=== PATIENT | female | born 1975 | race Caucasian/White ===

== ENCOUNTER 2024-05-16 04:06 | Day surgery (SDC) | payer OTHER, SELFPAY ==
[2024-04-26 14:44] VITALS: BMI 49.1
[2024-05-16 13:09] VITALS: BP 147/86; PULSE 74; RESP 18; TEMP 36.1; O2SAT 97
[2024-05-16] MEDS: LACTATED RINGERS 1,000 ML 150 ML IV CONT (13:19)
--- NOTE | 2024-05-16 13:36 | WPDANESEPPF ---
Anes - Initial Pre Proc Eval Procedure: Operation Date: 05/16/24 14:30 Proposed Procedures p Colonoscopy - Stewart Palafox MD Date/Time: 05/16/24 13:36 Surgeon: Stewart Palafox MD Pre Op Diagnosis: Ulcerative colitis, unspecified w/o complications Patient Data Age: 49 Gender: F Height: 1.63 m Weight: 125.5 kg Last Vital Signs Temp 96.9 F L 05/16/24 13:09 Pulse 74 05/16/24 13:09 Resp 18 05/16/24 13:09 BP 147/86 H 05/16/24 13:09 Pulse Ox 97 05/16/24 13:09 O2 Del Method Room Air 05/16/24 13:09 Allergies Allergy/AdvReac Type Severity Reaction Status Date / Time Sulfa (Sulfonamide Allergy Mild Unknown Verified 05/16/24 13:08 Antibiotics) Home Medications Medication Instructions Recorded Confirmed Type B-complex with vitamin C 1 cap PO HS 03/31/24 04/26/24 History duloxetine 60 mg capsule,delayed 60 mg PO HS 03/31/24 04/26/24 History release folic acid 20 mg capsule 20 mg PO DAILY 03/31/24 04/26/24 History hyoscyamine sulfate 0.375 mg 0.375 mg PO BID 03/31/24 04/26/24 History capsule,extended release 12 hr labetalol 300 mg tablet 300 mg PO Q12H 03/31/24 04/26/24 History montelukast 10 mg tablet 10 mg PO HS 03/31/24 04/26/24 History multivitamin-ferrous 1 tablet PO DAILY 03/31/24 04/26/24 History fumarate-folic acid 18 mg-400 mcg tablet (Centrum) omeprazole 20 mg capsule,delayed 20 mg PO DAILY 03/31/24 04/26/24 History release ferrous sulfate 325 mg (65 mg 325 mg PO DAILY #30 tabs 04/08/24 04/26/24 Rx iron) tablet adalimumab 10 mg/0.1 mL 40 mg subcut .EVERY WEEK 04/26/24 04/26/24 History subcutaneous syringe kit (Humira(CF)) albuterol sulfate 90 mcg/actuation 2 puff inhalation Q6H PRN SOB 04/26/24 04/26/24 History aerosol inhaler clonidine HCl 0.1 mg tablet 0.1 mg PO HS 04/26/24 04/26/24 History fexofenadine 180 mg tablet 180 mg PO DAILY 04/26/24 04/26/24 History fluticasone propionate 44 2 inh inhalation BID 04/26/24 04/26/24 History mcg/actuation HFA aerosol inhaler magnesium 400 mg PO DAILY 04/26/24 04/26/24 History ondansetron HCl 4 mg tablet 4 mg PO Q6H PRN N/V #4 tabs 04/26/24 Rx Patient hx anesthesia problems: none Family hx anesthesia problems: none Results Review: All pre-operative results and documents have been reviewed as part of the pre-operative evaluation. [facility] Social History Social History (Updated 03/31/24 @ 14:05 by Soarida Rudd MA) Smoking status: Former smoker Tobacco type: cigarettes Second hand tobacco smoke exposure: No Alcohol intake: never Do You Feel Safe in your Home?: Yes Living arrangements: with family Occupation/Education: occupation Gender identity (if verbalized by the patient): Female Spiritual care concerns: No Anes - Eval Final PreProcedure Day of Procedure 05/16/24 13:36 Patient weight: morbidly obese Heart: regular rate and rhythm Lungs: clear to auscultation Airway: Mallampati scale class II Neurological: alert and oriented Last oral intake: >/= 8 hours ASA classification: III Emergent: no Anesthetic plan: proceed Anesthesia type and monitoring: general GIVS and standard monitoring Results Review: All pre-operative results and documents have been reviewed as part of the pre-operative evaluation. Informed Consent: The patient's anesthetic plan and its attendant risks and benefits were discussed with the patient/family/POA. Questions were solicited and answers provided to the satisfaction of the patient/family/POA.
--- NOTE | 2024-05-16 14:08 | PM.HPGS ---
History of Present Illness History of Present Illness Consent: Risks, benefits, and alternatives have been discussed and questions answered. Patient agrees to proceed with procedure. Chief complaint: Ulcerative colitis, unspecified w/o complications Narrative: Nataliya Carter is a 49 year old female here for colonoscopy, diagnosed ulcerative colitis in 2012 she was given biosimilar for Remicade without improvement and was changed to Humira which she is currently taking weekly along with Levbid, last colonoscopy 2020 with inactive pancolitis, no dysplasia. She is supposed to get her colonoscopy every year. No change on symptoms, sometimes will have loose stools but seldom. Review of Systems Review of Systems: All systems reviewed & are unremarkable except as noted in HPI and below PMFSH Social History Social History (Updated 03/31/24 @ 14:05 by Soraida Rudd MA) Smoking status: Former smoker Tobacco type: cigarettes Second hand tobacco smoke exposure: No Alcohol intake: never Do You Feel Safe in your Home?: Yes Living arrangements: with family Occupation/Education: occupation Gender identity (if verbalized by the patient): Female Spiritual care concerns: No Meds Home Medications and Allergies Home Medications Medication Instructions Recorded Confirmed Type B-complex with vitamin C 1 cap PO HS 03/31/24 04/26/24 History duloxetine 60 mg capsule,delayed 60 mg PO HS 03/31/24 04/26/24 History release folic acid 20 mg capsule 20 mg PO DAILY 03/31/24 04/26/24 History hyoscyamine sulfate 0.375 mg 0.375 mg PO BID 03/31/24 04/26/24 History capsule,extended release 12 hr labetalol 300 mg tablet 300 mg PO Q12H 03/31/24 04/26/24 History montelukast 10 mg tablet 10 mg PO HS 03/31/24 04/26/24 History multivitamin-ferrous 1 tablet PO DAILY 03/31/24 04/26/24 History fumarate-folic acid 18 mg-400 mcg tablet (Centrum) omeprazole 20 mg capsule,delayed 20 mg PO DAILY 03/31/24 04/26/24 History release ferrous sulfate 325 mg (65 mg 325 mg PO DAILY #30 tabs 04/08/24 04/26/24 Rx iron) tablet adalimumab 10 mg/0.1 mL 40 mg subcut .EVERY WEEK 04/26/24 04/26/24 History subcutaneous syringe kit (Humira(CF)) albuterol sulfate 90 mcg/actuation 2 puff inhalation Q6H PRN SOB 04/26/24 04/26/24 History aerosol inhaler clonidine HCl 0.1 mg tablet 0.1 mg PO HS 04/26/24 04/26/24 History fexofenadine 180 mg tablet 180 mg PO DAILY 04/26/24 04/26/24 History fluticasone propionate 44 2 inh inhalation BID 04/26/24 04/26/24 History mcg/actuation HFA aerosol inhaler magnesium 400 mg PO DAILY 04/26/24 04/26/24 History ondansetron HCl 4 mg tablet 4 mg PO Q6H PRN N/V #4 tabs 04/26/24 Rx Allergies Allergy/AdvReac Type Severity Reaction Status Date / Time Sulfa (Sulfonamide Allergy Mild Unknown Verified 05/16/24 13:08 Antibiotics) Vital Signs Vital Signs - 24 hr 05/16/24 13:09 Temperature 96.9 F L Pulse Rate 74 Respiratory Rate 18 Blood Pressure 147/86 H Pulse Oximetry 97 Oxygen Delivery Room Air Exam Const: General: comfortable and no acute distress HENMT: Face/Nose/Sinus: Normal nares present Eyes: General: appearance normal, both eyes and all related structures Neck: Neck: no JVD Resp: Auscultation: clear to auscultation bilaterally Cardio: Rate: regular rate Rhythm: regular rhythm GI: Inspection: non-distended GI Palp: Yes Soft to palpation Skin: General skin exam: normal color Neuro: General: gait normal Speech: normal speech Extrem: General: normal to inspection Psych: Mental Status: mental status grossly normal Assessment and Plan Assessment and plan (1) Ulcerative colitis: Qualifiers: Ulcerative colitis location: other ulcerative colitis Digestive disease complication type: without complication Qualified Code(s): K51.80 - Other ulcerative colitis without complications Code(s): K51.90 - Ulcerative colitis, unspecifi
[2024-05-16 14:29] VITALS: BP 129/79; PULSE 74; RESP 17; O2SAT 93
[2024-05-16 14:39] VITALS: BP 134/80; PULSE 73; RESP 17; O2SAT 97
[2024-05-16 14:49] VITALS: BP 156/89; PULSE 65; RESP 20; O2SAT 100
== END 2024-05-16 15:02 | disposition home or self-care (01) ==
PROVIDERS: PCP Internal Medicine; Referring Provider Nurse Practitioner Family; Visit Provider Internal Medicine Gastroenterology
PROC: 0DJD8ZZ Inspection of Lower Intestinal Tract, Via Natural or Artificial Opening Endoscopic (ICD-10-PCS; CPT 45378; principal; 2024-05-16 14:30)
DX: K51.90 Ulcerative colitis, unspecified, without complications (principal); E66.01 Morbid (severe) obesity due to excess calories; Z68.42 Body mass index [BMI] 45.0-49.9, adult; Z79.620 Long term (current) use of immunosuppressive biologic; Z79.51 Long term (current) use of inhaled steroids; Z87.891 Personal history of nicotine dependence
CPT/HCPCS: 45380; 88305; J2704; J7120

== ENCOUNTER 2025-07-28 00:47 | Day surgery (SDC) | payer OTHER, SELFPAY ==
[2025-07-21 10:22] VITALS: BMI 47.7
--- OUTSIDE RECORDS SUMMARY | 2025-07-28 00:55 | XMS_ITS | Clinical Summary ---
Author Organization [facility] Address [facility] [place] [address] Care Team Providers Care Welfare Eligibility Interviewer Name Role Phone Jenna Young SAHIL Primary Care Provider [phone] Allergies Active Allergy Reactions Criticality Noted Date Comments Amlodipine Shortness of Breath High Sulfa Antibiotics Rash Low 04/12/2018 Medications Cetirizine HCl (ZYRTEC ALLERGY) 10 MG Cap Take 10 mg by mouth daily. Active omeprazole 20 MG capsule Take 20 mg by mouth daily. Active adalimumab (HUMIRA PEN) 40 MG/0.4ML pen-injector kit every 7 days. 04/02/2020 Activ e cloNIDine 0.1 MG tablet Take 0.1 mg by mouth every morning. 11/16/2019 Active loperamide 2 MG capsule Take 2 mg by mouth. Active TUBERCULIN SYR 1CC/27GX1/2 (B-D TB SYRINGE 1CC/27GX1/2) 27G X 1/2 1 ML Misc as directed 03/29/2019 Active losartan 25 MG tablet Take 25 mg by mouth daily. Active psyllium 51.7 % packet Take 1 packet by mouth daily. Active inFLIXimab-abda (RENFLEXIS) 100 MG injection Inject 5 mg/kg into the vein Once every eight weeks. Active diphenoxylate-a tropine 2.5-0.025 MG tablet 12/10/2020 Active folic acid 800 MCG tablet Take 400 mcg by mouth daily. Active hyoscyamine ER 0.375 MG 12 hr tablet Take 0.375 mg by mouth. Active Melatonin 10 MG Tab Take 1 tablet by mouth daily. Active labetalol 200 MG tablet Take 200 mg by mouth. Active Active Problems Problem Noted Date Diagnosed Date Ulcerative (chronic) ileocolitis 04/12/2018 Family History Medical History Relation Comments COPD Father Diabetes Maternal Grandfather Hypertension Maternal Grandfather Diabetes Maternal Grandmother Hypertension Maternal Grandmother Cancer Paternal Aunt Relation Status Comments Father Maternal Grandfather Maternal Grandmother Paternal Aunt Social History Tobacco Use Types Packs/Day Years Used Date Smoking Tobacco: Former Cigarettes 0.5 5 0 10/05/2001 - 10/05/2006 Smokeless Tobacco: Never Alcohol Use Standard Drinks/Week Comments Yes 0 (1 standard drink = 0.6 oz pur e alcohol) rare Comments No Sex and Gender Information Value Date Recorded Sex Assigned at Not on file Legal Sex Female 10:47 PM CDT Gender Identity Not on file Sexual Orientation Not on file Last Filed Vital Signs Vital Sign Reading Time Taken Comments Blood Pressure 140/87 02/21/2021 10:50 AM CDT Pulse 73 02/21/2021 10:50 AM CDT Temperature 36 C (96.8 F) 02/21/2021 10:30 AM CDT Respiratory Rate 19 02/21/2021 10:50 AM CDT Oxygen Saturation 100% 02/21/2021 10:50 AM CDT Inhaled Oxygen Concentration - - Weight 127.9 kg (282 lb) 02/15/2021 11:05 AM CDT Height 162.6 cm (5' 4) 07/31/2020 9:30 AM CDT Body Mass Index 48.41 07/31/2020 9:30 AM CDT Plan of Treatment Health Maintenance Due Date Last Done Comments Cervical Cancer Screening Pap Smear (Age 30 to 64) Every 3 Years 1973 Annual Physical 1976 Hepatitis C 1991 DTaP, Tdap and Td Vaccines (1 - Tdap) 1992 Hepatitis B Vaccines (1 of 3 - 19+ 3-dose series) 1992 Cervical Cancer Screening Pap with HPV Testing (Age 30 to 64) Every 5 Years 2003 Cervical Cancer Screening with HPV 2003 Mammogram Screening 12/21/2020 12/21/2018 Pneumococcal Vaccine: 50+ Years (2 of 2 - PCV) 2023 07/21/2016 Zoster Vaccines (1 of 2) 2023 COVID-19 Vaccine (2 - season) 2025 12/04/2020 Influenza Adult (#1) 2025 07/19/2020, 08/24/2018, 07/29/2017, Additional history exists Colorectal Cancer Screening Colonoscopy (10 Years) 02/21/2031 02/21/2021, 02/21/2021, 08/08/2020, Additional history exists Hepatitis A Vaccines Aged Out No long er eligible based on patient's age to complete this topic Meningococcal B Vaccine Aged Out No l onger eligible based on patient's age to complete this topic Meningococcal Vaccine Aged Out No alexus sanam eligible based on patient's age to complete this topic RSV Immunizations Under 20 Months Aged Out No longer eligible based on patient's age to complete this topic Procedures Procedure Name Priority Date/Time Associated Diagnosis Comments COLONOSCOPY Routine 02/21/2021 10:11 AM CDT MG SCREENING W GENNA REJI DIGI Routine 12/21/2018 9:49 AM CDT Screening breast examination from Last 3 Months or Most Recently Relevant to Health Maintenance Results * Colonoscopy (02/21/2021 10:11 AM CDT) Narrative Inocencio Pastrana MD - 02/21/2021 10:11 AM CDT Inocencio Pastrana MD 02/21/2021 10:39 AM INOCENCIO PASTRANA MD, FACG, FACP COLONOSCOPY 02/21/2021 INDICATION: Ulcerative Colitis. POST-OP: Quiescent Ulcerative Colitis. SEDATION: Per Anesthesia PREP: Good. With the patient in the left lateral decubitus position, the Olympus [id number] colonoscope was introduced into the rectum and advanced easily to the cecum identified by Ileocecal valve, appendiceal orifice and cecal strap. Careful inspection of the mucosa was made upon insertion and withdrawal of the endoscope. FINDINGS: Cecum, Ascending colon, Transverse colon, Descending colon, Sigmoid colon and Rectum including retroflexion: mildly tubular with altered vascular pattern and granularity consistent with quiescent Ulcerative Colitis. No masses, polyps, AVMs or diverticulosis seen. No complications, blood loss or implants. ASSESSMENT AND PLAN: Ulcerative Colitis: - Colonoscopy much improved - Consistent with quiescent Ulcerative Colitis - Continue current meds - Repeat colonoscopy with surveillance biopsies in two years Thank you for allowing me to care for your patient. She will follow-up with my office in six months. Inocencio Pastrana M.D. Cc: SAHIL Moncada Inocencio Pastrana MD GI PROCEDURE ORDERABLES Fin al Result * MG SCREENING W GENNA REJI DIGI (12/21/2018 9:49 AM CDT) Anatomical Region Laterality Modality Breast Bilateral Mammography 12/24/2018 9:37 AM CDT Impressions 12/24/2018 9:41 AM CDT =====IMPRESSION:===== No mammographic findings suggestive of malignancy. ASSESSMENT: ACR BI-RADS Category 2 - Benign. RECOMMENDATION: 1: Routine screening mammogram bilateral in 1 year COMMENTS: Narrative 12/24/2018 9:41 AM CDT EXAMINATION: Digital bilateral screening mammogram with 3-D tomosynthesis EXAM DATE/TIME: 12/21/2018 9:24 AM REASON FOR EXAM: scrn Screening mammogram COMPARISON: Prior mammograms dating back to 2013. TECHNIQUE: Digital screening mammography of both breasts was performed in addition to 3-D Tomosynthesis technique. This study was read with the assistance of a computer-aided detection system. TISSUE DENSITY: The breast tissue contains scattered fibroglandular densities. FINDINGS: No suspicious masses, malignant appearing calcifications, skin thickening or other abnormalities are present. No significant change from the prior exam. Trevon Mccann MD MAMMO Final Resu lt from Last 3 Months or Most Recently Relevant to Health Maintenance Insurance Care Teams Welfare Eligibility Interviewer Relationship Specialty Start Date End Date Jenna Young NP [address] [place] [id number] PCP - General Nurse Practitioner Family 05/04/19
--- OUTSIDE RECORDS SUMMARY | 2025-07-28 00:55 | XMS_ITS | Clinical Summary ---
Author Organization [facility] Address [address] [place] [address] Care Team Providers Care Stone Finisher Name Role Phone Janie Nicholas DO Primary Care Provider [phone] Allergies Active Allergy Reactions Criticality Noted Date Comments Cat Dander Itching Low 04/01/2023 Sulfa (Sulfonamide Antibiotics) Rash Medium 06/2018 Medications ANETTE Estrada, Pen 40 mg/0.4 mL pen injector kit INJECT 1 PEN SUBCUTANEOUSLY EVERY WEEK 12/11/19 21 Active hyoscyamine ER (LEVBID) 0.375 mg 12 hr tablet Take 1 tablet (0.375 mg total) by mouth every 12 (twelve) hours as needed Active cetirizine 10 mg capsule Take 10 mg by mouth daily Active omeprazole (PriLOSEC) 20 mg capsule Take by mouth daily 06/25/20 16 Active folic acid (FOLVITE) 800 mcg tablet Take 0.5 tablets (400 mcg total) by mouth daily Active cloNIDine (CATAPRES) 0.1 mg tablet Take by mouth nightly 11/16/19 21 Active labetaloL (NORMODYNE,NAIK DATE) 200 mg tablet Take 1.5 tablets (300 mg total) by mouth 2 (two) times a day 11/16/19 21 Active multivitamin capsule Take 1 capsule by mouth daily Active ibuprofen (ADVIL,MOTRIN) 800 mg tablet Take 1 tablet (800 mg total) by mouth every 8 (eight) hours as needed for pain (pain) 30 tablet 07/08/20 23 Active albuterol HFA (PROVENTIL HFA,VENTOLIN HFA,PROAIR HFA) 90 mcg/actuation inhaler Inhale 2 puffs every 6 (six) hours as needed Active fluticasone propionate (FLOVENT HFA) 44 mcg/actuation inhaler Inhale 2 puffs 2 (two) times a day Active montelukast (SINGULAIR) 10 mg tablet Take 1 tablet (10 mg total) by mouth daily Active DULoxetine DR (CYMBALTA) 30 mg capsuleIndicati ons:Lumbar spondylosis Take 1 capsule (30 mg total) by mouth 2 (two) times a day 60 capsule 2 02/16/20 24 Active Active Problems Problem Noted Date Diagnosed Date Postmenopausal bleeding 07/08/2023 Severe obesity due to excess calories affecting in second trimester 07/08/2023 Thrombocytosis 12/10/2020 Immunizations Immunization Administration Dates Next Due Influenza, Quadrivalent, Spl it, Preservative Free, Intramuscular 07/19/2020,08/24/2018,07/17/2015 Pfizer SARS-CoV-2 Monovalent Vaccination (12+ Yrs) PURPLE 12/04/2020 Pneumococcal Polysaccharide PPV23 07/21/2016 Surgical History Surgery Date Site/Laterality Comments SECTION CHOLECYSTECTOMY PLANTAR FASCIA SURGERY COLONOSCOPY Medical History Medical History Date Comments 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 Liver disease pt states it was a one time thing when she had her gallbladder problems Hypertension PONV (postoperative nausea and vomiting) Motion sickness Family History Medical History Relation Name Comments Rectal cancer Father's Sister 1 Breast cancer Father's Sister 2 Relation Name Status Comments Father's Sister 1 Father's Sister 2 Social History Tobacco Use Types Packs/Day Years Used Date Smoking Tobacco: Former Cigarettes Q uit: 2008 Smokeless Tobacco: Never Tobacco Cessation:Counseling Given: Not Answered AUDIT-C Answer Date Recorded Q1: How often do you have a drink containing alc ohol? Monthly or less 06/24/2023 Q2: How many drinks containi ng alcohol do you have on a typical day when you are drinking? 1 or 2 06/24/2023 Q3: How often do you have si x or more drinks on one occasion? Never 06/24/2023 Personal Safety Answer Date Recorded Have you ever been in or are you currently in a harmful physical or emotional relationship or is someone making you feel afraid or unsafe? Denies 07/08/2023 Comments No Sex and Gender Information Value Date Recorded Sex Assigned at Not on file Legal Sex Female 2:30 AM LEGAL INVESTIGATOR Gender Identity Female 07/01/2024 2:25 PM CDT Sexual Orientation Straight 07/01/2024 2: 25 PM CDT Obstetrics History Para Term AB IAB SAB Ectopic Multiple Livin g Live Births 1 1 1 Date Outcome GA Total Labor Labor/2nd/3rd Weight Sex Type Anes PTL Jessica A1 A5 Name Clin Term Last Filed Vital Signs Vital Sign Reading Time Taken Comments Blood Pressure 151/82 07/08/2023 2:15 PM CDT Pulse 69 07/08/2023 2:15 PM CDT Temperature 36.2 C (97.2 F) 07/08/2023 1:45 PM CDT Respiratory Rate 15 07/08/2023 1:45 PM CDT Oxygen Saturation 95% 07/08/2023 2:15 PM CDT Inhaled Oxygen Concentration - - Weight 126.6 kg (279 lb) 06/24/2023 10:10 AM CDT Height 162.6 cm (5' 4) 06/24/2023 10:10 AM CDT Body Mass Index 47.89 06/24/2023 10:10 AM CDT Plan of Treatment Health Maintenance Due Date Last Done Comments Cervical Cancer Screening 1973 Colon Cancer Screening-Colonoscopy 1973 Depression Screening 1973 Hepatitis B Screening 1991 Regular Well Visit/Exam 18-64 1991 Zoster Vaccine (1 of 2) 2023 Covid-19 Vaccine (4 - 2024- season) 2025 07/31/2021, 12/25/2020, 12/04/2020 Influenza Vaccine (#1) 2025 , 07/15/2022, 07/05/2021, Additional history exists Breast Cancer Screening-Mammogram 09/05/2025 09/05/2024, 07/22/2023, 07/21/2022, Additional history exists DTaP/Tdap/Td Vaccine (2 - Td or Tdap) 06/30/2027 06/30/2017 Hepatitis C Screening Completed 02/21/2015, 013 Pneumococcal vaccine <65 Aged Out 07/21/2016 No longer eligible based on patient's age to complete this topic Procedures Procedure Name Priority Date/Time Associated Diagnosis Comments SCREENING MAMMOGRAM BILATERAL W JUAN Schedule Routine, Read Routine (OP Routine) 09/05/2024 10:56 AM LEGAL INVESTIGATOR Screening mammogram, encounter for HEPATITIS PANEL, ACUTE Routine 02/21/2015 6:11 PM CDT from Last 3 Months or Most Recently Relevant to Health Maintenance Results * Screening Mammogram Bilateral W Juan (09/05/2024 10:56 AM LEGAL INVESTIGATOR) Anatomical Region Laterality Modality Breast Bilateral Mammography Impressions 09/05/2024 11:22 AM LEGAL INVESTIGATOR BI-RADS ATLAS category (overall): 1 - Negative There is no mammographic evidence of malignancy. A 1 year screening mammogram is recommended. The patient has been or will be contacted. We recommend annual screening mammography for women at average risk of breast cancer beginning at age 40, based on guidelines of the [employer] (ACR Practice Parameter for the Performance of Screening and Diagnostic Mammography) and [employer]. For women with and elevated risk of breast cancer, please refer to the ACR Practice Parameter for specific screening recommendations. The patient will be entered into a reminder system with a target due date of 1 year for her next screening exam. Narrative 09/05/2024 11:22 AM LEGAL INVESTIGATOR Screening Mammogram Bilateral W Juan: 09/05/24 The study was acquired using full field digital technology and interpreted from soft copy. 2D digital mammographic views, as well as 3D digital tomosynthesis were performed in the CC and MLO projections. This study was resulted using Computer-Aided Detection (CAD). CLINICAL: Screening mammogram, encounter for. No relevant medical history has been documented for this patient. History of breast cancer in Father's Sister. COMPARISONS: 08/17/2023 US Breast Left Limited 08/17/2023 Diagnostic Mammogram Left W Juan 07/22/2023 Screening Mammogram Bilateral W Juan 07/21/2022 Screening Mammogram Bilateral W Juan BREAST TISSUE: The breasts are almost entirely fatty. FINDINGS: No suspicious masses, suspicious calcifications, or other suspicious findings are seen within either breast. There has been no suspicious change. us Self Screening Mammogram IMG MAMMO PROCEDURES Fi nal Result * Hepatitis panel, acute (02/21/2015 6:11 PM CDT) HepBsAg NONREACT NONREACTIVE 02/21/2015 7:[address] [facility] HISTORICAL RESULTS Comment: Siemens CentaurXP using KITA (chemiluminescent immunoassay) technology. NONREACTIVE: IgM antibodies to Hepatitis B Surface antigen not detected. REACTIVE: IgM antibodies to Hepatitis B Surface antigen detected. Reactive results will be confirmed by neutralization testing. HBsAb (immune status) NONREACT NONREACTIVE 02/21/2015 7:[address] [facility] HISTORICAL RESULTS Comment: Siemens CentaurXP using KITA (chemiluminescent immunoassay) technology. NONREACTIVE: IgM antibodies to Hepatitis B Surface antibody not detected. REACTIVE: IgM antibodies to Hepatitis B Surface antibody detected. Hep B core IgM NONREACT NONREACTIVE 5 7:[address] [facility] HISTORICAL RESULTS Comment: Siemens CentaurXP using KITA (chemiluminescent immunoassay) technology. NONREACTIVE: IgM antibodies to Hepatitis B Core antigen not detected. EQUIVOCAL: IgM antibodies to Hepatitis B Core antigen may or may not be present. Obtain a new specimen and retest. REACTIVE: IgM antibodies to Hepatitis B Core antigen detected. Hep A IgM NONREACT NONREACTIVE 02/21/2015 7:54 PM CDT [facility] Comment: Siemens CentaurXP using KITA (chemiluminescent immunoassay) technology. NONREACTIVE: IgM antibodies to Hepatitis A not detected. This does not exclude possibility of exposure to Hepatitis A or early acute infection. EQUIVOCAL:IgM antibodies to Hepatitis A may or may not be present. Suggest recollection and retest. REACTIVE: Antibodies to Hepatitis A detected. Hep C Ab NONREACT NONREACTIVE 02/21/2015 7:53 PM T [facility] HISTORICAL RESULTS Comment: Siemens CentaurXP using KITA (chemiluminescent immunoassay) technology. NONREACTIVE: Antibodies to Hepatitis C not detected. This does not exclude early acute Hepatitis C infection, possibility of exposure to Hepatitis C, antibodies below detection limit, or to lack of antibody reactivity to the antigen used in this assay. EQUIVOCAL: Antibodies to Hepatitis C may or may not be present. Sample to be confirmed by real-time PCR method. REACTIVE: Antibodies to Hepatitis C detected. 02/21/2015 6:11 PM CDT 02/21/2015 6:40 PM CDT Lebron Vo MD LAB MICROBIOLOGY - GENERA L ORDERABLES Final Result [facility] HISTORICAL RESULTS from Last 3 Months or Most Recently Relevant to Health Maintenance Insurance [facility] Advance Directives For more information, please contact: [phone] * Full Code (Latest Code Status on File) Date Activated Date Inactivated Comments 07/08/2023 1:50 PM 07/08/2023 6:44 PM Care Teams Stone Finisher Relationship Specialty Start Date End Date Janie Nicholas DO [address] [place] [address] PCP - General Internal Medicine 05/03/24
--- OUTSIDE RECORDS SUMMARY | 2025-07-28 00:55 | XMS_ITS | Encounter Summary ---
Author Organization [facility] Address [address] [place] [address] Care Team Providers Care Wire Coiler Machine Operator Name Role Phone Jenna Young SAHIL Primary Care Provider [phone] Encounter Details Date Type Department Care Team (Late st Contact Info) Description 02/18/2021 Prep for Procedure [facility] [place] [address] Inocencio Pastrana MD [address] [address] Social History Tobacco Use Types Packs/Day Years [...] on file Sexual Orientation Not on file COVID-19 Exposure Response Date Recorded In the last month, have you been in contact with someone who was confirmed or suspected to have Coronavirus / COVID-19? No / Unsure 02/21/2021 9:24 AM CDT documented as of this encounter Plan of Treatment Not on file documented as of this encounter Results * CORONAVIRUS (COVID 19) PCR [facility] (02/18/2021 10:00 AM CDT) CORONAVIRUS SARS COV 2 PCR (RESP) NOT DETECTED NOT DETECTED 02/19/2021 4:35 PM CDT [facility] Comment: A Not Detected (negative) test result for this test means that SARS- CoV-2 RNA was not present in the specimen above the limit of detection. A negative result does not rule out the possibility of COVID-19 and should not be used as the sole basis for treatment or patient management decisions. If COVID-19 is still suspected, based on exposure history together with other clinical findings, re-testing should be considered in consultation with public health authorities. Laboratory test results should always be considered in the context of clinical observations and epidemiological data in making a final diagnosis and patient management decisions. Please review the Fact Sheets and FDA authorized labeling available for health care providers and patients using the following websites: https://www.VIPAAR.[employer] Research/home/Covid-19/HCP/[facility]/fact- sheet.html https://www.[employer]IPAAR.[employer] Research/home/Covid-19/Patients/ Quest[facility]D/fact-sheet.html This test has been authorized by the FDA under an Emergency Use Authorization (EUA) for use by authorized laboratories. Due to the current public health emergency, [facility] is receiving a high volume of samples from a wide variety of swabs and media for COVID-19 testing. In order to serve patients during this public health crisis, samples from appropriate clinical sources are being tested. Negative test results derived from specimens received in non-commercially manufactured viral collection and transport media, or in media and sample collection kits not yet authorized by FDA for COVID-19 testing should be cautiously evaluated and the patient potentially subjected to extra precautions such as additional clinical monitoring, including collection of an additional specimen. Methodology: Nucleic Acid Amplification Test (NAAT) includes RT-PCR or TMA Additional information about COVID-19 can be found at the [facility] website: www.[email or web address].Vmedia Research/Covid19. Test performed at [facility] [address] [place] [address] Director: AYLEEN MCNEIL DO,MPH FIRST TEST NO 02/18/2021 12:51 PM CDT [facility] EMPLOYED IN HEALTHCARE NO 02/18/2021 12:51 PM CDT [facility] SYMPTOMATIC DEFINED BY CDC NO 02/18/2021 12:51 PM CDT [facility] DATE OF SYMPTOM ONSET NO 02/18/2021 12:54 PM CDT [facility] HOSPITALIZATION STATUS NO 02/18/2021 12:51 PM CDT [facility] PATIENT IN ICU NO 02/18/2021 12:51 PM CDT [facility] RESIDENT OF [facility] NO 02/18/2021 12:51 PM CDT [facility] NOT 02/18/2021 12:51 PM CDT [facility] PATIENT'S RACE WHITE OR 02/18/2021 12:51 PM CDT [facility] ETHNICITY NONHISPANIC 02/18/2021 12:51 PM CDT [facility] SOURCE ([facility]) NASOPHARYNGEAL SWAB 02/18/2021 12:51 PM CDT [facility] NASOPHARYNGEAL SWAB / Unknown 02/18/2021 10:00 AM CDT us Inocencio Pastrana MD MICROBIOLOGY - GENERAL KEVIN MALONEY Final Result [facility] [address] [place] [address], [place] [phone] [facility] [id number] [place] [id number], documented in this encounter Visit Diagnoses Diagnosis Ulcerative colitis (CMS/HCC HHS/HCC)- Primary Ulcerative colitis, unspecified documented in this encounter Additional Health Concerns Infection Onset Date Last Indicated Resolved Time COVID-19 Rule Out 02/18/2021 02/18/2021 02/19/2021 4:35 PM CDT documented as of this encounter Care Teams Wire Coiler Machine Operator Relationship Specialty Start Date End Date Jenna Young NP [address] [place] [address] PCP - General Nurse Practitioner Family 05/04/19 documented as of this encounter
--- OUTSIDE RECORDS SUMMARY | 2025-07-28 00:55 | XMS_ITS | Clinical Summary ---
Author Organization [facility] Address [address] [facility] [place] [address] Care Team Providers Care Biochemistry Technologist Name Role Phone Jenna Sarmiento FANC[facility] Primary Care Provider Source Comments [facility],non-owned Affiliates and Associated Physician Practices is amultiple site organization consisting of ambulatory clinics and hospital sitesin [place], [place], [place] and [place]. This disclosure is being madepursuant to the Care Everywhere program and may not contain all information available regarding this patient. Last updated 18.[facility] Allergies Active Allergy Reactions Criticality Noted Date Comments Amlodipine Base Shortness of Breath High Carvedilol Other Medium Other: bronchitis Sulfa Drugs Rash Medium 04/12/2018 Medications * Be aware that medications may not be up to date on this document. Alwaysverify current medications with the patient. balsalazide (COLAZAL) 750 MG capsule Take 3 capsules by mouth 3 times daily 2 9 Active cetirizine (ZYRTEC ALLERGY) 10 MG tablet Take 10 mg by mouth once daily 6 Active NUVARING 0.12-0.015 MG/24HR vaginal ring 11 9 Active folic acid (FOLVITE) 1 MG tablet Take 1 mg by mouth once daily Active inFLIXimab-abd a (RENFLEXIS) injection 680 mg by Intravenous route Every 8 Weeks 8 Active losartan (COZAAR) 25 MG tablet Take 25 mg by mouth once daily 3 9 Active methotrexate 50 MG/2ML injection Inject 0.6 mL subcutaneously every 7 days 2 9 Active omeprazole (PRILOSEC) 20 MG capsule Take 20 mg by mouth once daily 6 Active raNITIdine (ZANTAC) 300 MG tablet Take 300 mg by mouth at bedtime 2 9 Active B-D TB SYRINGE 1CC/27GX1/2 27G X 1/2 1 ML syringe as directed 2 9 Active cloNIDine (CATAPRES) 0.1 MG tablet 0 Active diclofenac sodium (VOLTAREN) 1 % gel Apply 4 g to affected area 4 times daily 2 gm amount for elbow, wrist or hand 4 gm amount for knee, ankle or foot 100 g 5 0 Active Social History Tobacco Use Types Packs/Day Years Used Date Smoking Tobacco: Former Smokeless Tobacco: Never Alcohol Use Standard Drinks/Week Comments Yes 0 (1 standard drink = 0.6 oz pur e alcohol) rarely Comments Unknown Sex and Gender Information Value Date Recorded Sex Assigned at Not on file Legal Sex Female 10:09 AM CDT Gender Identity Not on file Sexual Orientation Not on file Last Filed Vital Signs Vital Sign Reading Time Taken Comments Blood Pressure 134/88 11/22/2019 11:25 AM PULPING MACHINE OPERATOR Pulse 73 11/22/2019 11:25 AM PULPING MACHINE OPERATOR Temperature 36.3 C (97.4 F) 11/22/2019 11:25 AM PULPING MACHINE OPERATOR Respiratory Rate 18 06/21/2019 12:01 PM CDT Oxygen Saturation 99% 11/22/2019 11:25 AM PULPING MACHINE OPERATOR Inhaled Oxygen Concentration - - Weight 127.9 kg (282 lb) 11/22/2019 11:25 AM PULPING MACHINE OPERATOR Height 165.1 cm (5' 5) 11/22/2019 11:25 AM PULPING MACHINE OPERATOR Body Mass Index 46.93 11/22/2019 11:25 AM PULPING MACHINE OPERATOR Plan of Treatment Health Maintenance Due Date Last Done Comments OGKARO (AGES 45-75) - COL ON CA SCREENING 1973 COLON MONITORING 1973 COLONOSCOPY - COLON CA SCREENING 1973 CT COLONOGRAPHY - COLON CA SCREENING 1973 Colorectal Cancer Screening 1973 FIT - COLON CA SCREENING 1973 FLEX SIG - COLON CA SCREENING 1973 LIPID TESTING 1973 MAMMOGRAM 1973 COVID-19 VACCINE (#1) 1978 HIV SCREENING 1988 HEPATITIS C SCREENING 03/09/1991 DTAP/TDAP/TD VACCINES (1 - Tdap) 1992 HEPATITIS B VACCINE (1 of 3 - 19+ 3-dose series) 1992 PAP SMEAR 1994 SCREENING FOR DIABETES 04/27/2022 04/27/2019 PNEUMOCOCCAL VACCINE 50+ (1 of 1 - PCV) 2023 ZOSTER VACCINE (1 of 2) 2023 DEPRESSION SCREENING 10/05/2024 INFLUENZA VACCINE (#1) 2025 07/29/2017 HIB VACCINE Aged Out No longer eligi ble based on patient's age to complete this topic HPV VACCINE Aged Out No longer eligi ble based on patient's age to complete this topic MENINGOCOCCAL (Group B) VACC INE SHARED DECISION-MAKING Aged Out No longer eligibl e based on patient's age to complete this topic MENINGOCOCCAL GROUPS A/C/Y/W VACCINE Aged Out No longer eligible b ased on patient's age to complete this topic Procedures Procedure Name Priority Date/Time Associated Diagnosis Comments COMPREHENSIVE METABOLIC PANEL Routine 04/27/2019 1:18 PM CDT Polyarthralgia Ulcerative colitis with complication, unspecified location Therapeutic drug monitoring from Last 3 Months or Most Recently Relevant to Health Maintenance Results * COMPREHENSIVE METABOLIC PANEL (04/27/2019 1:18 PM CDT) Glucose 96 65 - 139 mg/dL [facility] Comment: Non-fasting reference interval BUN 17 7 - 25 mg/dL [facility] Creatinine 0.98 0.50 - 1.10 mg/dL [facility] eGFR by MDRD 69 > OR = 60 mL/min/1. 73m2 [facility] eGFR by MDRD 80 > OR = 60 mL/min/1. 73m2 [facility] BUN/Creatinine Ratio NOT APPLICABLE 6 - 22 (calc) [facility] Sodium 140 135 - 146 mmol/L [facility] Potassium 4.7 3.5 - 5.3 mmol/L [facility] Chloride 107 98 - 110 mmol/L [facility] CO2 24 20 - 32 mmol/L [facility] Calcium 8.6 8.6 - 10.2 mg/dL [facility] Protein Total 6.5 6.1 - 8.1 g/dL [facility] Albumin 3.6 3.6 - 5.1 g/dL [facility] Globulin Total 2.9 1.9 - 3.7 g/dL (calc) [facility] Albumin/Globuli n Ratio 1.2 1.0 - 2.5 (calc) [facility] Bilirubin Total 0.3 0.2 - 1.2 mg/dL [facility] Alkaline Phosphatase 58 33 - 115 U/L [facility] AST 19 10 - 35 U/L [facility] ALT 15 6 - 29 U/L [facility] Comment: Test Performed at: [facility] [id number] [place] [address] AYLEEN MCNEIL DO,MPH Blood BLOOD SPECIMEN / Unknown 04/27/2019 1:18 PM CDT 04/27/2019 1:23 PM CDT Edward Small MD LAB - CHEMISTRY ORDERABLES [facility] Result Performing Organization Address City/State/[facility] Co de Phone Number [facility] [address] [place] [address] from Last 3 Months or Most Recently Relevant to Health Maintenance Insurance [facility] SELF PAY NO INSURANCE Member Subscriber Plan / Payer (Ef fective for All Dates) Name:Mehnaz Garsia Member ID:Not on file Relation to Subscriber:Not on file Name:MEHNAZ GARISA Subscriber ID:Not on file (Home) Address: [address] [place] [phone] Payer ID:Not on file Group ID:Not on file Type:Self Pay Address: [place], [place] Care Teams Biochemistry Technologist Relationship Specialty Start Date End Date Jenna Sarmiento APRN-LALITHA [address] [place] [phone] [facility] - General 04/26/19
--- OUTSIDE RECORDS SUMMARY | 2025-07-28 00:55 | XMS_ITS | Data Portability ---
Author Organization [facility] Address [address] [place] [address] Care Team Providers Care Assembler Musical Equipment Name Role Phone SUKHJINDER WINTERS OTHER KASIE GASTELUM Geothermal Operations Manager FABI VARGAS Deputy Grand Jury CEDRIC WELCH Primary Care Provider [phone] Assessment No assessment recorded. Plan of Treatment Reminders Order Date Submit Date Provider Last Modified By Organization Details Last Modified Time Details Appointments ANY 15 2024 09:45A M Janie Nicholas, DO Not available Not available Not available Lab CMP, serum or plasma 2024 025 [facility], [address] [place] [address], [address], [place], [address], 01/10/2025 04:08:03 CBC w/ auto diff 2024 025 [facility], [address] [place] [address], [address], [place], [address], 01/10/2025 04:08:05 lipid panel, serum 2024 025 [facility], [address] [place] [address], [address], [place], [address], 01/10/2025 04:08:02 TSH + free T4, serum 2024 025 [facility], Nigel Zhang, [address], [place], [address], 01/10/2025 09:11:27 iron + total iron-bind ing capacity (TIBC), serum 2024 025 EM[facility] LAY, Nigel Zhang, [address], [place], [address], 01/10/2025 09:11:28 ferritin, serum or plasma 2024 025 EMILY LAY, Nigel Zhang, [address], [place], [address], 01/10/2025 09:11:29 BMP, serum or plasma 2023 024 EM[facility] LAY, Nigel Zhang, [address], [place], [address], 09/14/2024 03:36:42 iron + total iron-bind ing capacity (TIBC), serum 2023 024 [facility] LAY, Nigel Zhang, [address], [place], [address], 09/14/2024 14:36:38 ferritin, serum or plasma 2023 024 EMILY LAY, Nigel Zhang, [address], [place], [address], 09/14/2024 14:36:40 CBC w/ auto diff 2023 024 EMILY LAY, Nigel Zhang, [address], [place], [address], 09/14/2024 03:36:43 Referral dermatolo gist referral 2024 025 paul Hylton [facility], [address] [place] [address] [place], [address], 07/19/2025 17:14:30 gastroent erologist referral - needs colonosco py in may 025 Janes-Resub shabbir-Revert Adriana Vega MD, [address], [place], [address], 01/09/2025 15:08:31 Procedures None recorded. Surgeries None recorded. Imaging None recorded. Medication Orders cyclobenz aprine 5 mg tablet 2024 025 [id number], [address] [place], [place], [id number], 07/06/2025 05:02:22 celecoxib 200 mg capsule 2024 025 [facility] #[id number], [address] [place], [place], [id number], 06/19/2025 15:14:15 duloxetin e 30 mg capsule,d elayed release 2024 025 [facility][id number], [address] [place], [place], [id number], 01/09/2025 09:48:[address] 10 mg tablet 2024 025 [facility] #86083, [address] [place], [place], [id number], 01/09/2025 09:48:18 loratadin e 10 mg tablet 2024 025 [facility] #11546, [address] [place], [place], [id number], 01/09/2025 09:48:55 spironola ctone 25 mg-hydroc hlorothia zide 25 mg tablet 2023 024 [facility] #54478, [address] [place], [place], [id number], 09/13/2024 09:49:35 duloxetin e 40 mg capsule,d elayed release 2023 [facility] #27875, [address] [place], [place], [id number], 07/21/2024 11:23:02 spironola ctone 25 mg-hydroc hlorothia zide 25 mg tablet 2023 [facility] #01534, [address] [place], [place], [id number], 07/21/2024 11:23:03 Patient TargetsNo targets recorded. Patient Instructions Encounter Date Encounter Id Patient Instructions Last Modified By Organization Details Last Modified Time 07/21/2024 [id number] dash diet: care instructions [email or web address] Not available 07/21/2024 11:22:55 How To Lower Blood Pressure [email or web address] Not available 07/21/2024 11:22:55 09/13/2024 [id number] dash diet: care instructions [email or web address] Not available 09/13/2024 09:49:28 How To Lower Blood Pressure [email or web address] Not available 09/13/2024 09:49:28 A healthy lifestyle: care instructions [email or web address] Not available 09/13/2024 09:49:28 01/09/2025 [id number] dash diet: care instructions [email or web address] Not available 01/09/2025 09:45:06 How To Lower Blood Pressure [email or web address] Not available 01/09/2025 09:45:06 A healthy lifestyle: care instructions [email or web address] Not available 01/09/2025 09:45:06 06/19/2025 [id number] A healthy lifestyle: care instructions [email or web address] Not available 06/19/2025 15:14:05 07/19/2025 [id number] Patient Health Questionnaire-2* [email or web address] Not available 07/19/2025 11:47:18 A healthy lifestyle: care instructions [email or web address] Not available 07/19/2025 10:35:56 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 Referral for Family history of cancer of colon needs colonoscopy in may Referring Physician: Janie Nicholas, Internal Medicine, Encounter Date: 01/09/2025 Skein Yarn Drier Referral for L esion of skin of face Referring Physician: Janie Nicholas, Internal Medicine, Encounter Date: 07/19/2025 Results Created Date Observation Date Name Description Value Unit Range Abnormal Flag Note LastModifiedBy Organization Detail LastModifiedTime 09/13/20 24 09/14/2024 BASIC METAB OLIC PANEL (8) glucose 100 mg/dL 70-99 above high normal Not Available [facility] Department [address] [place] [address], [address], 09/14/2024 03:36:41 09/13/20 24 09/14/2024 BASIC METAB OLIC PANEL (8) BUN 24 mg/dL 6-24 Not Available [facility] Department [address] [place] [address], [address], 09/14/2024 03:36:41 09/13/20 24 09/14/2024 BASIC METAB OLIC PANEL (8) creatinine 1.14 mg/dL 0.76-1 .27 Not Available [facility] Department [address] [place] [address], [address], 09/14/2024 03:36:41 09/13/20 24 09/14/2024 BASIC METAB OLIC PANEL (8) eGFR 58 >=60 below low normal Units for eGFR value s are mL/mi n/1.7 3 The eGFR Calcu latio n has not been valid ated for patie nts under the age of 18. If test resul ts are displ ayed for a patie nt under the age of 18, disre kiersten that value . Not Available [facility] Department [address] [place] [address], [address], 09/14/2024 03:36:41 09/13/20 24 09/14/2024 BASIC METAB OLIC PANEL (8) BUN/creatini ne ratio 21 9-23 Not Available [facility] Department [address] [place], [address], 09/14/2024 03:36:41 09/13/20 24 09/14/2024 BASIC METAB OLIC PANEL (8) sodium 136 mmol/ L 134-14 4 Not Available [facility] Department [address] [place], [address], 09/14/2024 03:36:41 09/13/20 24 09/14/2024 BASIC METAB OLIC PANEL (8) potassium 4.1 mmol/ L 3.5-5. 2 Not Available [facility] Department [address] [place], [address], 09/14/2024 03:36:41 09/13/20 24 09/14/2024 BASIC METAB OLIC PANEL (8) chloride 99 mmol/ L 96-106 Not Available [facility] Department [address] [place], [address], 09/14/2024 03:36:41 09/13/20 24 09/14/2024 BASIC METAB OLIC PANEL (8) carbon dioxide, total 30 mmol/ L 20-29 above high normal Not Available [facility] Department [address] [place], [address], 09/14/2024 03:36:41 09/13/20 24 09/14/2024 BASIC METAB OLIC PANEL (8) calcium 9.5 mg/dL 8.7-10 .2 Not Available [facility] Department [address] [place], [address], 09/14/2024 03:36:41 09/13/20 24 09/13/2024 CBC WITH DIFFE RENTI AL/PL ATELE T WBC 9.6 x10e3 /uL 3.4-10 .8 Not Available [facility] Department [address] [place], [address], 09/14/2024 03:36:43 09/13/20 24 09/13/2024 CBC WITH DIFFE RENTI AL/PL ATELE T RBC 4.25 x10e6 /uL 3.77-5 .28 Not Available [facility] Department [address] [place], [address], 09/14/2024 03:36:43 09/13/20 24 09/13/2024 CBC WITH DIFFE RENTI AL/PL ATELE T hemoglobin 12.5 g/dL 11.1-1 5.9 Not Available [facility] Department [address] [place], [address], 09/14/2024 03:36:43 09/13/20 24 09/13/2024 CBC WITH DIFFE RENTI AL/PL ATELE T hematocrit 38.8 % 34.0-4 6.6 Not Available [facility] Department [address] [place], [address], 09/14/2024 03:36:43 09/13/20 24 09/13/2024 CBC WITH DIFFE RENTI AL/PL ATELE T MCV 91 fL 79-97 Not Available [facility] Department [address] [place], [address], 09/14/2024 03:36:43 09/13/20 24 09/13/2024 CBC WITH DIFFE RENTI AL/PL ATELE T MCH 29.4 pg 26.6-3 3.0 Not Available [facility] Department [address] [place], [address], 09/14/2024 03:36:43 09/13/20 24 09/13/2024 CBC WITH DIFFE RENTI AL/PL ATELE T MCHC 32.2 g/dL 31.5-3 5.7 Not Available [facility] Department [address] [place], [address], 09/14/2024 03:36:43 09/13/20 24 09/13/2024 CBC WITH DIFFE RENTI AL/PL ATELE T RDW 15.3 % 11.5-1 4.5 above high normal Not Available [facility] Department [address] [place], [address], 09/14/2024 03:36:43 09/13/20 24 09/13/2024 CBC WITH DIFFE RENTI AL/PL ATELE T platelets 401 x10e3 /uL 150-45 0 Not Available [facility] Department [address] [place], [address], 09/14/2024 03:36:43 09/13/20 24 09/13/2024 CBC WITH DIFFE RENTI AL/PL ATELE T neutrophils 51 % notest b. Not Available [facility] Department [address] [place], [address], 09/14/2024 03:36:43 09/13/20 24 09/13/2024 CBC WITH DIFFE RENTI AL/PL ATELE T lymphs 28 % notest b. Not Available [facility] Department [address] [place], [address], 09/14/2024 03:36:43 09/13/20 24 09/13/2024 CBC WITH DIFFE RENTI AL/PL ATELE T monocytes 12 % notest b. Not Available [facility] Department [address] [place], [address], 09/14/2024 03:36:43 09/13/20 24 09/13/2024 CBC WITH DIFFE RENTI AL/PL ATELE T eos 8 % notest b. Not Available [facility] [address] [place], [address], 09/14/2024 03:36:43 09/13/20 24 09/13/2024 CBC WITH DIFFE RENTI AL/PL ATELE T basos 1 % notest b. Not Available [facility] Department [address] [place] [address], [address], 09/14/2024 03:36:43 09/13/20 24 09/13/2024 CBC WITH DIFFE RENTI AL/PL ATELE T neutrophils (absolute) 4.9 x10e3 /uL 1.4-7. 0 Not Available [facility] Department [address] [place], [address], 09/14/2024 03:36:43 09/13/20 24 09/13/2024 CBC WITH DIFFE RENTI AL/PL ATELE T lymphs (absolute) 2.7 x10e3 /uL 0.7-3. 1 Not Available [facility] Department [address] [place], [address], 09/14/2024 03:36:43 09/13/20 24 09/13/2024 CBC WITH DIFFE RENTI AL/PL ATELE T monocytes(ab solute) 1.1 x10e3 /uL 0.1-0. 9 above high normal Not Available [facility] Department [address] [place], [address], 09/14/2024 03:36:43 09/13/20 24 09/13/2024 CBC WITH DIFFE RENTI AL/PL ATELE T eos (absolute) 0.7 x10e3 /uL 0.0-0. 4 above high normal Not Available [facility] Department [address] [place], [address], 09/14/2024 03:36:43 09/13/20 24 09/13/2024 CBC WITH DIFFE RENTI AL/PL ATELE T baso (absolute) 0.1 x10e3 /uL 0.0-0. 2 Not Available [facility] Department [address] [place], [address], 09/14/2024 03:36:43 09/13/20 24 09/13/2024 CBC WITH DIFFE RENTI AL/PL ATELE T immature granulocytes 0.2 % notest b. Not Available [facility] Department [address] [place], [address], 09/14/2024 03:36:43 09/13/20 24 09/13/2024 CBC WITH DIFFE RENTI AL/PL ATELE T immature grans (abs) 0.0 x10e3 /uL 0.0-0. 1 Not Available [facility] Department [address] [place], [address], 09/14/2024 03:36:43 09/13/20 24 09/13/2024 CBC WITH DIFFE RENTI AL/PL ATELE T NRBC 0 % 0-0 Not Available [facility] Department [address] [place], [address], 09/14/2024 03:36:43 09/13/20 24 09/14/2024 IRON AND TIBC iron bind.cap.(TI BC) 298 ug/dL 250-45 0 Not Available [facility] ([facility]) [address] [place], [address], 09/14/2024 14:36:38 09/13/20 24 09/14/2024 IRON AND TIBC UIBC 202 ug/dL 131-42 5 Not Available [facility] ([facility]) [address] [place], [address], 09/14/2024 14:36:38 09/13/20 24 09/14/2024 IRON AND TIBC iron 96 ug/dL 27-159 Not Available [facility] ([facility]) [address] [place], [address], 09/14/2024 14:36:38 09/13/20 24 09/14/2024 IRON AND TIBC iron saturation 32 % 15-55 Not Available [facility] ([facility]) [address] [place], [address], 09/14/2024 14:36:38 09/13/20 24 09/14/2024 CHE TIN ferritin 117 NG/mL 15-150 Not Available [facility] ([facility]) [address], [place], [address], 09/14/2024 14:36:40 01/10/20 25 01/09/2025 LIPID PANEL cholesterol, total 180 mg/dL 100-19 9 Not Available [facility] Department [address] [place], [address], 01/10/2025 04:08:02 01/10/20 25 01/09/2025 LIPID PANEL triglyceride s 93 mg/dL 0-149 Not Available [facility] Department [address] [place], [address], 01/10/2025 04:08:02 01/10/20 25 01/09/2025 LIPID PANEL HDL cholesterol 45 mg/dL 40-999 Not Available [facility] Department [address] [place], [address], 01/10/2025 04:08:02 01/10/20 25 01/09/2025 LIPID PANEL VLDL cholesterol kenroy 19 mg/dL 5-40 Not Available [facility] Department [address] [place], [address], 01/10/2025 04:08:02 01/10/20 25 01/09/2025 LIPID PANEL LDL chol calc ([facility]) 129 mg/dL 0-99 above high normal Not Available [facility] Department [address] [place], [address], 01/10/2025 04:08:02 01/10/20 25 01/09/2025 COMP. METAB OLIC PANEL (14) glucose 87 mg/dL 70-99 Not Available [facility] Department [address] [place], [address], 01/10/2025 04:08:03 01/10/20 25 01/09/2025 COMP. METAB OLIC PANEL (14) BUN 23 mg/dL 6-24 Not Available [facility] Department [address] [place], [address], 01/10/2025 04:08:03 01/10/20 25 01/09/2025 COMP. METAB OLIC PANEL (14) creatinine 1.16 mg/dL 0.76-1 .27 Not Available [facility] Department [address] [place] [address], [address], 01/10/2025 04:08:03 01/10/20 25 01/09/2025 COMP. METAB OLIC PANEL (14) eGFR 57 >=60 below low normal Units for eGFR value s are mL/mi n/1.7 3 The eGFR Calcu latio n has not been valid ated for patie nts under the age of 18. If test resul ts are displ ayed for a patie nt under the age of 18, disre kiersten that value . Not Available [facility] [address] [place] [address], [address], 01/10/2025 04:08:03 01/10/20 25 01/09/2025 COMP. METAB OLIC PANEL (14) BUN/creatini ne ratio 20 9-23 Not Available [facility] Department [address] [place], [address], 01/10/2025 04:08:03 01/10/20 25 01/09/2025 COMP. METAB OLIC PANEL (14) sodium 139 mmol/ L 134-14 4 Not Available [facility] Department [address] [place], [address], 01/10/2025 04:08:03 01/10/20 25 01/09/2025 COMP. METAB OLIC PANEL (14) potassium 4.4 mmol/ L 3.5-5. 2 Not Available [facility] Department [address] [place] [address], [address], 01/10/2025 04:08:03 01/10/20 25 01/09/2025 COMP. METAB OLIC PANEL (14) chloride 99 mmol/ L 96-106 Not Available [facility] Department [address] [place] [address] [place], [address], 01/10/2025 04:08:03 01/10/20 25 01/09/2025 COMP. METAB OLIC PANEL (14) carbon dioxide, total 29 mmol/ L 20-29 Not Available [facility] Department [address] [place] [address], [address], 01/10/2025 04:08:03 01/10/20 25 01/09/2025 COMP. METAB OLIC PANEL (14) calcium 9.5 mg/dL 8.7-10 .2 Not Available [facility] Department [address] [place], [address], 01/10/2025 04:08:03 01/10/20 25 01/09/2025 COMP. METAB OLIC PANEL (14) protein, total 7.5 g/dL 6.0-8. 5 Not Available [facility] Department [address] [place] [address], [address], 01/10/2025 04:08:03 01/10/20 25 01/09/2025 COMP. METAB OLIC PANEL (14) albumin 4.1 g/dL 3.8-4. 9 Not Available [facility] Department [address] [place], [address], 01/10/2025 04:08:03 01/10/20 25 01/09/2025 COMP. METAB OLIC PANEL (14) globulin, total 3.4 g/dL 1.5-4. 5 Not Available [facility] Department [address] [place], [address], 01/10/2025 04:08:03 01/10/20 25 01/09/2025 COMP. METAB OLIC PANEL (14) A/G ratio 1.0 1.2-2. 2 below low normal Not Available [facility] Department [address] [place], [address], 01/10/2025 04:08:03 01/10/20 25 01/09/2025 COMP. METAB OLIC PANEL (14) bilirubin, total 0.4 mg/dL 0.0-1. 2 Not Available [facility] Department [address] [place], [address], 01/10/2025 04:08:03 01/10/20 25 01/09/2025 COMP. METAB OLIC PANEL (14) alkaline phosphatase 102 IU/L 44-121 Not Available [facility] Department [address] [place], [address], 01/10/2025 04:08:03 01/10/20 25 01/09/2025 COMP. METAB OLIC PANEL (14) AST (SGOT) 18 U/L 0-40 Not Available [facility] Department [address] [place], [address], 01/10/2025 04:08:03 01/10/20 25 01/09/2025 COMP. METAB OLIC PANEL (14) ALT (SGPT) 16 IU/L 0-32 Not Available [facility] Department [address] [place] [address], [address], 01/10/2025 04:08:03 01/10/20 25 01/09/2025 CBC WITH DIFFE RENTI AL/PL ATELE T WBC 10.0 x10e3 /uL 3.4-10 .8 Not Available [facility] Department [address] [place], [address], 01/10/2025 04:08:05 01/10/20 25 01/09/2025 CBC WITH DIFFE RENTI AL/PL ATELE T RBC 4.30 x10e6 /uL 3.77-5 .28 Not Available [facility] Department [address] [place], [address], 01/10/2025 04:08:05 01/10/20 25 01/09/2025 CBC WITH DIFFE RENTI AL/PL ATELE T hemoglobin 12.6 g/dL 11.1-1 5.9 Not Available [facility] [address] [place], [address], 01/10/2025 04:08:05 01/10/2001/09/2025 CBC WITH DIFFE RENTI AL/PL ATELE T hematocrit 39.6 % 34.0-4 6.6 Not Available [facility] [address] [place], [address], 01/10/2025 04:08:05 01/10/2001/09/2025 CBC WITH DIFFE RENTI AL/PL ATELE T MCV 92 fL 79-97 Not Available [facility] [address] [place], [address], 01/10/2025 04:08:05 01/10/20 25 01/09/2025 CBC WITH DIFFE RENTI AL/PL ATELE T MCH 29.3 pg 26.6-3 3.0 Not Available [facility] Department [address] [place], [address], 01/10/2025 04:08:05 01/10/20 25 01/09/2025 CBC WITH DIFFE RENTI AL/PL ATELE T MCHC 31.8 g/dL 31.5-3 5.7 Not Available [facility] Department [address] [place], [address], 01/10/2025 04:08:05 01/10/20 25 01/09/2025 CBC WITH DIFFE RENTI AL/PL ATELE T RDW 14.8 % 11.5-1 4.5 above high normal Not Available [facility] Department [address] [place], [address], 01/10/2025 04:08:05 01/10/20 25 01/09/2025 CBC WITH DIFFE RENTI AL/PL ATELE T platelets 421 x10e3 /uL 150-45 0 Not Available [facility] Department [address] [place], [address], 01/10/2025 04:08:05 01/10/20 25 01/09/2025 CBC WITH DIFFE RENTI AL/PL ATELE T neutrophils 54 % notest b. Not Available [facility] [address] [place], [address], 01/10/2025 04:08:05 01/10/20 25 01/09/2025 CBC WITH DIFFE RENTI AL/PL ATELE T lymphs 28 % notest b. Not Available [facility] [address] [place], [address], 01/10/2025 04:08:05 01/10/20 25 01/09/2025 CBC WITH DIFFE RENTI AL/PL ATELE T monocytes 10 % notest b. Not Available [facility] [address] [place], [address], 01/10/2025 04:08:05 01/10/20 25 01/09/2025 CBC WITH DIFFE RENTI AL/PL ATELE T eos 7 % notest b. Not Available [facility] [address] [place], [address], 01/10/2025 04:08:05 01/10/20 25 01/09/2025 CBC WITH DIFFE RENTI AL/PL ATELE T basos 1 % notest b. Not Available [facility] [address] [place], [address], 01/10/2025 04:08:05 01/10/20 25 01/09/2025 CBC WITH DIFFE RENTI AL/PL ATELE T neutrophils (absolute) 5.4 x10e3 /uL 1.4-7. 0 Not Available [facility] Department [address] [place], [address], 01/10/2025 04:08:05 01/10/20 25 01/09/2025 CBC WITH DIFFE RENTI AL/PL ATELE T lymphs (absolute) 2.8 x10e3 /uL 0.7-3. 1 Not Available [facility] Department [address] [place], [address], 01/10/2025 04:08:05 01/10/20 25 01/09/2025 CBC WITH DIFFE RENTI AL/PL ATELE T monocytes(ab solute) 1.0 x10e3 /uL 0.1-0. 9 above high normal Not Available [facility] Department [address] [place], [address], 01/10/2025 04:08:05 01/10/20 25 01/09/2025 CBC WITH DIFFE RENTI AL/PL ATELE T eos (absolute) 0.7 x10e3 /uL 0.0-0. 4 above high normal Not Available [facility] [address] [place], [address], 01/10/2025 04:08:05 01/10/20 25 01/09/2025 CBC WITH DIFFE RENTI AL/PL ATELE T baso (absolute) 0.1 x10e3 /uL 0.0-0. 2 Not Available [facility] [address] [place], [address], 01/10/2025 04:08:05 01/10/20 25 01/09/2025 CBC WITH DIFFE RENTI AL/PL ATELE T immature granulocytes 0.2 % notest b. Not Available [facility] Department [address] [place], [address], 01/10/2025 04:08:05 01/10/20 25 01/09/2025 CBC WITH DIFFE RENTI AL/PL ATELE T immature grans (abs) 0.0 x10e3 /uL 0.0-0. 1 Not Available [facility] Department [address] [place], [address], 01/10/2025 04:08:05 01/10/20 25 01/09/2025 CBC WITH DIFFE RENTI AL/PL ATELE T NRBC 0 % 0-0 Not Available [facility] Department [address], [place], [address], 01/10/2025 04:08:05 01/10/2001/10/2025 TSH+F REE T4 TSH 1.570 uIU/m L 0.450- 4.500 Not Available [facility] ([facility]) [address] [place], [address], 01/10/2025 09:11:27 01/10/20 25 01/10/2025 TSH+F REE T4 T4,free(dire ct) 1.00 NG/dL 0.82-1 .77 Not Available [facility] ([facility]) [address] [place], [address], 01/10/2025 09:11:27 01/10/20 25 01/10/2025 IRON AND TIBC iron bind.cap.(TI BC) 305 ug/dL 250-45 0 Not Available [facility] ([facility]) [address] [place], [address], 01/10/2025 09:11:28 01/10/20 25 01/10/2025 IRON AND TIBC UIBC 228 ug/dL 131-42 5 Not Available [facility] ([facility]) [address] [place], [address], 01/10/2025 09:11:28 01/10/20 25 01/10/2025 IRON AND TIBC iron 77 ug/dL 27-159 Not Available [facility] ([facility]) [address] [place], [address], 01/10/2025 09:11:28 01/10/20 25 01/10/2025 IRON AND TIBC iron saturation 25 % 15-55 Not Available [facility] ([facility]) [address] [place], [address], 01/10/2025 09:11:28 01/10/20 25 01/10/2025 CHE TIN ferritin 112 NG/mL 15-150 Not Available [facility] ([facility]) [address], [place], [address], 01/10/2025 09:11:29 02/15/20 25 02/16/2025 HPV E6+E7 mRNA, quali tativ e PCR, cervi x HPV high risk Negati ve text: negati ve The HPV High Risk assay is inten ded for use as co-te sting with cytol ogy and not as a subst itute for regul ar cervi kenroy cytol ogy scree love. This assay is not inten ded for use as a scree love devic e for women under age 30 with martha l cervi kenroy cytol ogy. Not Available Not Available 06/19/2025 05:53:34 09/05/20 24 09/05/2024 US, gallo hernández No observ ation record ed. neelam almanzar [id number] [place], [address], 09/05/2024 14:04:20 03/30/2009/05/2024 MAMMO , martín haywardg, tomos ynthe sis, bilat eral No observ ation record ed. [email or web address] Not Available 03/30 12:45:36 Result Notes None recorded. Problems Name Problem SNOMED Code Status Onset Date Resolution Date Notes Provider Name and Address Organization Details Recorded Time Impaired glucose tolerance 2247899 Active Not Available [facility] 4 18:56:26 Sinusitis 37249696 Completed 03/07/2019 CARY FERNANDEZ Attn: [facility], [place], [address] , [place] [facility] 9 12:08:59 Palpitatio ns 68101115 Active Not Available [facility] 4 18:56:26 Ulcerative colitis 22572097 Active Not Available [facility] 4 18:56:26 Morbid obesity 296596275 Active Not Available [facility] 4 18:56:26 Rosacea 118901324 Active Not Available [facility] 4 18:56:26 Itching of skin 413788030 Completed 07/05/2020 CARY FERNANDEZ Attn: [employer] ,[address] [facility], [place], [address] , [place] - [facility] 0 15:48:33 Cholecysti tis 79006495 Completed 07/05/2020 CARY FERNANDEZ Attn: Accounting ,[address] [facility], [place], [address] , [place] - [facility] 0 16:03:07 Chronic kidney disease stage 1 443339080 Active 2016 Not Available [facility] 4 18:56:26 Right kidney absent 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 Active 2016 Not Available [facility] 4 18:56:26 Vitamin D deficiency [id number] Active 2016 Not Available [facility] 4 18:56:26 Erythema multiforme [id number] Completed 201607/05/2020 CARY FERNANDEZ Attn: Accounting ,[address] [facility], [place], [address] , [place] - [place] 0 16:08:56 Chronic ulcerative ileocoliti s 55458436 Active 2017 Not Available [facility] 4 18:56:26 Thrombocyt osis 0260490 Active 2020 Not Available [facility] 4 18:56:26 Problem Notes None recorded. Procedures Surgical History Date Name Laterality Status Provider Name and Address Organization Details Recorded Time 06/19/20 21 Most Recent Mammogram completed Trevon Mccann [place] 06/19/2021 18:50:34 10/10/19 21 Date of Last Pap Smear completed Trevon Mccann [place] 10/10/2020 23:10:23 08/05/20 20 Colonoscopy with biopsy completed Astrid Harris [place] 10/10/2020 17:40:47 10/05/19 15 Cholecystectomy completed Jannet Green [facility] 09/21/2015 11:19:01 02/13/20 09 Caesarean Section completed Trevon Mccann [facility] 03/31/2019 12:30:36 Dilation and Curettage completed Billy Oliveira MA [facility] 08/13/2023 12:50:08 Imaging Results None recorded. Procedure Notes None recorded. Medical Equipment None Reported. Allergies Allergen ID Allergen Name Allergen Category Reaction Reaction Severity Criticality Documentation Date Start Date Code Code System Note Provider Name and Address Organization Details Recorded Time 107995 amlodipin e medicatio n Not available Not available Not available 08/13/2023 37562 RxNorm Other react ions and sever ities : 'Shor tness of Breat h - Sever e'. Raj Capellan MD Attn: Elvira joseph,[address] [place], [address], [facility] 13:16:04 10159 Substance with sulfonami de structure and antibacte rial mechanism of action (substanc e) medicatio n Not available Not available Not available 10/18/2014 13487 8003 SNOMED [facility] 6 14:35:28 07801 Substance with sulfonami de structure and antibacte rial mechanism of action (substanc e) medicatio n rash moderate Not available 12/13/20142017 03557 8003 SNOMED Raj Capellan MD Attn: Elvira joseph,[address] [facility], [place], [address], [facility] 13:17:45 Medications Name Sig Start Date Stop Date Status Note LastModified by Organization Details LastModified Time Prescript ion - Renewal 03/23 completed Not Available Not Available Not Available losartan 50 mg tablet 50 mg by oral route. 09/05 completed Prescrib ed by nephrosenda gist Not Available Not Available Not Available celecoxib 200 mg capsule TAKE 1 CAPSULE BY MOUTH EVERY DAY NEEDED active Not Available Not Available No t Available Imodium 2 mg capsule Take 1 capsule as needed by oral route. 10/[address] ed by Dr. Padron n - only as needed Not Available Not Available Not Available cyclobenz aprine 10 mg tablet 08/13 completed Not Available Not Available Not Available amoxicill in 500 mg capsule TAKE 2 TABLETS BY MOUTH THREE TIMES DAILY FOR 5 DAYS 08/13 completed Not Available Not Available Not Available metformin 500 mg tablet active Not Available Not Available Not Available clonidine HCl 0.1 mg tablet TAKE 1 TABLET BY MOUTH EVERY NIGHT AT BEDTIME 06/30 completed Not Available Not Available Not Available prednison e 10 mg tablet Take 1 tablet every day by oral route for 30 days. 07/15 completed Not Available Not Available Not Available doxycycli ne hyclate 100 mg capsule TAKE 1 CAPSULE BY MOUTH TWICE DAILY FOR 7 DAYS 11/25 completed Not Available Not Available Not Available carvedilo l 12.5 mg tablet TAKE 1 TABLET BY MOUTH TWICE DAILY active Not Available Not Available No t Available labetalol 200 mg tablet 07/05 completed Not Available Not Available Not Available sulfasala zine 500 mg tablet 07/28 completed Not Available Not Available Not Available trazodone 50 mg tablet TAKE 1 TABLET BY MOUTH EVERY DAY 2024 active Not Available Not Available Not Avai lable azithromy moises 250 mg tablet TAKE 2 TABLETS BY MOUTH FOR 1 DAY THEN TAKE 1 TABLET BY MOUTH EVERY DAY 10/21 completed Not Available Not Available Not Available ibuprofen 800 mg tablet 10/21 completed Not Available Not Available Not Available benzonata te 200 mg capsule TAKE 1 CAPSULE BY MOUTH EVERY 8 HOURS NEEDED FOR COUGH 10/21 completed Not Available Not Available Not Available ampicilli n 500 mg capsule 08/13 completed Not Available Not Available Not Available ranitidin e 300 mg tablet 1 tab po q day 07/05 completed Not Available Not Available Not Available hydrocodo ne 5 mg-acetam inophen 325 mg tablet Take 1 tablet every 6 hours by oral route. active Not Available Not Available No t Available promethaz ine 6.25 mg/5 mL oral syrup TAKE 10 ML BY MOUTH FOUR TIMES DAILY NEEDED 10/21 completed Not Available Not Available Not Available spironola ctone 25 mg-hydroc hlorothia zide 25 mg tablet TAKE 1 TABLET BY MOUTH EVERY DAY active Not Available Not Available No t Available ondansetr on HCl 4 mg tablet TAKE FIRST DOSE 30 MINUTES PRIOR TO STARTING PREP AND EVERY 6 HOURS NEEDED FOR NAUSEA AND VOMITING 06/30 completed Not Available Not Available Not Available prednison e 20 mg tablet TAKE 2 TABLETS BY MOUTH EVERY DAY FOR 4 DAYS 11/25 completed Not Available Not Available Not Available diphenoxy late-atro pine 2.5 mg-0.025 mg tablet 07/05 completed Not Available Not Available Not Available metronida zole 500 mg tablet 10/[address] ed by Dr[address] Vito frye Not Available Not Available Not Available ciproflox acin 250 mg tablet 03/07 completed Not Available Not Available Not Available levofloxa moises 250 mg tablet 01/25 completed Not Available Not Available Not Available amlodipin e 5 mg tablet active Not Available Not Available Not Available methotrex ate sodium 25 mg/mL injection solution Take 1 mL every week by injectio n route for 28 days. 07/11 completed Not Available Not Available Not Available ciproflox acin 500 mg tablet TAKE 1 TABLET BY MOUTH EVERY 12 HOURS FOR 5 DAYS 02/01 completed Not Available Not Available Not Available tramadol 50 mg tablet Take one tablet by mouth every 6 hours NEEDED 07/05 completed Not Available Not Available Not Available carvedilo l 3.125 mg tablet 1 tab po bid active Not Available Not Available No t Available clonidine HCl 0.2 mg tablet Take 0.2 mg by oral route. 10/10 completed Not Available Not Available Not Available omeprazol e 10 mg capsule,d elayed release Take 20 mg by oral route. 07/05 completed Not Available Not Available Not Available hyoscyami ne ER 0.375 mg tablet,ex tended release,1 2 hr TAKE 1 TABLET BY MOUTH EVERY 12 HOURS active Not Available Not Available No t Available dicyclomi ne 20 mg tablet 10/10 completed Not Available Not Available Not Available benzonata te 100 mg capsule TAKE 1 CAPSULE BY MOUTH THREE TIMES DAILY FOR 10 DAYS 08/13 completed Not Available Not Available Not Available prednison e 2.5 mg tablet Take one a day 03/23 completed Not Available Not Available Not Available hyoscyami ne sulfate 0.125 mg tablet Take 0.375 mg every 4 hours by oral route. 01/25 completed Not Available Not Available Not Available oseltamiv ir 75 mg capsule Take 1 capsule twice a day by oral route. 03/07 completed Not Available Not Available Not Available fluticaso ne propionat e 44 mcg/actua tion HFA aerosol inhaler INHALE 2 PUFFS BY MOUTH TWICE DAILY 2024 active Not Available Not Available Not Avai lable losartan 25 mg tablet Take 1 tablet every day by oral route as directed . 07/05 completed Not Available Not Available Not Available diclofena c sodium 25 mg tablet,de layed release 25 mg twice a day by oral route. 07/31 completed Not Available Not Available Not Available mercaptop urine 50 mg tablet 04/24 completed 03/06/15 [employer] Not Available Not Available Not Available balsalazi de 750 mg capsule 2250 mg 3 times a day by oral route. 07/31 completed Not Available Not Available Not Available omeprazol e 20 mg capsule,d elayed release Take 1 capsule every day by oral route. active Not Available Not Available No t Available folic acid 1 mg tablet Take 1 tablet every day by oral route. 08/13 completed Not Available Not Available Not Available monteluka st 10 mg tablet TAKE 1 TABLET BY MOUTH EVERY DAY active Not Available Not Available No t Available codeine 10 mg-guaife nesin 100 mg/5 mL oral liquid Take 5 mL every 6 hours by oral route as needed. 01/20 completed Not Available Not Available Not Available alcohol swabs 03/31 completed Not Available Not Available Not Available furosemid e 20 mg tablet 03/31 completed Not Available Not Available Not Available gabapenti n 100 mg capsule 08/13 completed Not Available Not Available Not Available ergocalci ferol (vitamin D2) 1,250 mcg (50,000 unit) capsule Take 1 capsule every week by oral route. 11/24 completed Not Available Not Available Not Available labetalol 300 mg tablet TAKE 1 TABLET BY MOUTH TWICE DAILY 06/30 completed Not Available Not Available Not Available estradiol 0.01% (0.1 mg/gram) vaginal cream INSERT 1 GRAM VAGINALL Y TWICE A WEEK FOR VAGINAL AND BLADDER HEALTH active Not Available Not Available No t Available methylpre dnisolone 4 mg tablets in a dose pack Use as directed . 10/21 completed Not Available Not Available Not Available labetalol 100 mg tablet 01/25 completed Not Available Not Available Not Available albuterol sulfate HFA 90 mcg/actua tion aerosol inhaler INHALE 2 PUFFS BY MOUTH EVERY 6 HOURS NEEDED active Not Available Not Available No t Available dicyclomi ne 10 mg capsule Take 1 capsule 3 times a day by oral route. 10/[address] ed by Dr[address] Vito frye Not Available Not Available Not Available loratadin e 10 mg tablet TAKE 1 TABLET BY MOUTH EVERY DAY active Not Available Not Available No t Available amoxicill in 875 mg-potass ium clavulana te 125 mg tablet Take 1 tablet every 12 hours by oral route for 7 days. 01/24 completed Not Available Not Available Not Available etonogest rel 0.12 mg-ethiny l estradiol 0.015 mg/24 hr vaginal ring INSERT 1 VAGINAL RING EVERY MONTH BY VAGINAL ROUTE DIRECTED 01/25 completed Not Available Not Available Not Available methotrex ate sodium (PF) 25 mg/mL injection solution active Not Available Not Available Not Available cyclobenz aprine 5 mg tablet Take 1 tablet 3 times a day by oral route for 10 days. 07/06 completed Not Available Not Available Not Available cholestyr amine (with sugar) 4 gram oral powder MIX AND DRINK 1 SCOOP 3 TIMES A DAY FOR 30 DAYS active Not Available Not Available No t Available Prilosec OTC 20 mg tablet,de layed release Take 1 tablet every day by oral route. 08/[address] ed by Dr[address] Vito frye Not Available Not Available Not Available bupropion HCl XL 150 mg 24 hr tablet, extended release Take 1 tablet every day by oral route for 30 days. 04/27 completed Not Available Not Available Not Available labetalol 200 mg-hydroc hlorothia zide 25 mg tablet Take 0.5 tablets twice a day by oral route. 09/05 completed Not Available Not Available Not Available nitrofura ntoin monohydra te/macroc rystals 100 mg capsule Take 1 capsule every 12 hours by oral route for 5 days. 07/05 completed Not Available Not Available Not Available duloxetin e 30 mg capsule,d elayed release TAKE 1 CAPSULE BY MOUTH TWICE DAILY active Not Available Not Available No t Available duloxetin e 60 mg capsule,d elayed release TAKE 1 CAPSULE BY MOUTH EVERY DAY 01/09 completed Not Available Not Available Not Available metronida zole 1 % topical gel APPLY TO THE AFFECTED AREA(S) BY TOPICAL ROUTE ONCE DAILY RUB IN GENTLY.. . active Not Available Not Available No t Available mesalamin e active Not Available Not Available Not Available Metamucil Take 2 tablespo ons daily 07/05 completed Not Available Not Available Not Available Centrum 10/21 completed Not Available Not Available Not Available FeroSul 325 mg (65 mg iron) tablet TAKE 1 TABLET BY MOUTH DAILY. active Not Available Not Available No t Available melatonin 5 mg tablet Take 10 mg as needed by oral route. 07/05 completed Not Available Not Available Not Available Element Test Strips 03/31 completed Not Available Not Available Not Available mesalamin e 800 mg tablet,de layed release 2 tabs po q a.m. 2 tabs po q p.m 11/24 completed Not Available Not Available Not Available Zyrtec 10 mg capsule Take by oral route. 08/13 completed Not Available Not Available Not Available Safety Seal Lancets 28 gauge 07/11 completed Not Available Not Available Not Available Creon 36,000 unit-114, 000 unit-180, 000 unit capsule,d elayed release 07/05 completed Not Available Not Available Not Available methotrex ate (PF) 50mg/2ml /0.6ml 1 injectio n q Thursday per pt 08/25 completed Not Available Not Available Not Available methotrex ate (PF) 10 mg/0.2 mL subcutane ous auto-inje ctor Inject 0.1 mL every week by subcutan eous route. active Not Available Not Available No t Available duloxetin e 40 mg capsule,d elayed release TAKE ONE CAPSULE BY MOUTH TWICE DAILY active Not Available Not Available No t Available Procto-Me d HC 2.5 % topical cream perineal applicato r 07/05 completed Not Available Not Available Not Available Renflexis TAke 680mg every 8 weeks 07/05 completed Prescrib ed and managed by GI doctor Not Available Not Available Not Available Humira(CF ) Pen 40 mg/0.4 mL subcutane ous kit INJECT 1 PEN SUBCUTAN EOUSLY EVERY WEEK active Not Available Not Available No t Available Humira(CF ) Pen Crohn's-U lc Colitis-H id Sup Strt 80 mg/0.8 mL subcut kt 07/05 completed Not Available Not Available Not Available BinaxNOW COVID-19 Ag Self Test kit TEST DIRECTED TODAY active Not Available Not Available No t Available Vitals Date Recorded Body height Body mass index (BMI) Body weight Heart rate Body temperature Oxygen saturation Oxygen saturation in Arterial blood by Pulse oximetry Systolic And Diastolic Provider Name and Address Organization Details Last Updated DateTime 5 162.56 cm 47.8 kg/m2 109443. 12 g 83 /min 96.9 [degF] 95 % 95 % 114/72 mm[Hg] Sindhu powers [place] [facility] 5 09:37:11 Date Recorded Body height Body mass index (BMI) Body weight Heart rate Body temperature Oxygen saturation Oxygen saturation in Arterial blood by Pulse oximetry Systolic And Diastolic Provider Name and Address Organization Details Last Updated DateTime 5 162.56 cm 47.3 kg/m2 795229. 7 g 78 /min 97.3 [degF] 99 % 99 % 129/78 mm[Hg] [facility] 15:05[facility]02 Date Recorded Body height Body mass index (BMI) Body weight Heart rate Body temperature Oxygen saturation Oxygen saturation in Arterial blood by Pulse oximetry Systolic And Diastolic Provider Name and Address Organization Details Last Updated DateTime 5 162.56 cm 47.6 kg/m2 013975. 45 g 85 /min 97.3 [degF] 95 % 95 % 90/53 mm[Hg] [facility] 10:27:39 Date Recorded Body height Body mass index (BMI) Body weight Heart rate Body temperature Oxygen saturation Oxygen saturation in Arterial blood by Pulse oximetry Systolic And Diastolic Provider Name and Address Organization Details Last Updated DateTime 4 162.56 cm 48.8 kg/m2 014079. 59 g 73 /min 97.4 [degF] 98 % 98 % 148/84 mm[Hg] Sindhu powers [place] 4 11:23:14 Date Recorded Body height Body mass index (BMI) Body weight Heart rate Body temperature Oxygen saturation Oxygen saturation in Arterial blood by Pulse oximetry Systolic And Diastolic Provider Name and Address Organization Details Last Updated DateTime 4 162.56 cm 47.7 kg/m2 755300. 6 g 70 /min 96.9 [degF] 99 % 99 % 114/70 mm[Hg] Sinhdu powers [place] 4 09:44:37 Social History Question Answer Notes LastModified by Organizat ion Details LastModified Time Tobacco Smoking Status Former Smoker 13 yrs ago Sindhu Soto MA [place], [place] - [place] 07/05/2021 11:12:17 Is Blood Transfusion Acceptable In An Emergency? Yes [email or web address] Information not available 09/21/2015 What Is Your Level Of Caffeine Consumption? Moderate [email or web address] Information not available 09/21/2015 How Much Tobacco Do You Chew? None [email or web address] Information not available 09/21/2015 What Type Of Diet Are You Following? REGULAR [email or web address] Information not available 09/21/2015 Which Illicit Or Recreational Drugs Have You Used? None [email or web address] Information not available 09/21/2015 Education 2 Year College [email or web address] Information not available 09/21/2015 Live Alone Or With Others? With Others [email or web address] Information not available 09/21/2015 What Was The Date Of Your Most Recent Tobacco Screening? 07/19/2025 [email or web address] Information not available 07/19/2025 How Many Children Do You Have? 1 Information not available 09/21/2015 Performs Monthly Self-breast Exam? No [email or web address] Information not available 09/21/2015 Do You Use Protection During Sex? Always [email or web address] Information not available 09/21/2015 What Is Your Relationship Status? Single Information not available 09/21/2015 Seat Belts Used Routinely Yes Information not available 09/21/2015 Are You Sexually Active? Yes [email or web address] Information not available 09/21/2015 At What Age Did You Start Smoking Tobacco? 18 [email or web address] Information not available 09/21/2015 General Stress Level Medium [email or web address] Information not available 09/21/2015 Do You Use Sunscreen Routinely? Yes [email or web address] Information not available 09/21/2015 Has Tobacco Cessation Counseling Been Provided? Yes Information not available 01/25/2021 On What Date Was Tobacco Cessation Counseling Provided? 01/25/2021 Information not available 01/25/2021 Sex: Unknown Functional Status Question Answer Note LastModified by Organizat ion Details LastModified Time What is your level of alcohol consumption? Occasional [email or web address] Information not available 04/24/2015 Do you or have you ever used smokeless tobacco? Never used smokeless tobacco Information not available 09/05/2020 Are you currently employed? Yes [email or web address] Information not available 09/21/2015 Are you able to care for yourself independently? 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 Never used electronic cigarettes Information not available 09/05/2020 What is your exercise level? Occasional [email or web address] Information not available 09/21/2015 Mental Status None recorded. Family History Relationship Description Onset Age of this Age Resolved Age Notes LastModified by Organization Details LastModified Time Father Chronic obstructive pulmonary disease [email or web address] Not available 07/21 09:52:03 Mother Epilepsy [email or web address] Not availab le 07/21/2016 09:52:03 Paternal Grandfather Heart disease [email or web address] Not available 07/21 09:52:03 Paternal Grandfather Hypertensive disorder [email or web address] Not available 07/21 09:52:03 Paternal Grandfather Diabetes mellitus [email or web address] Not available 07/21 09:52:03 Paternal Grandfather Cerebrovascu lar accident [email or web address] Not available 09:52:03 Paternal Grandmother Hypertensive disorder [email or web address] Not available 07/21 09:52:03 Paternal Grandmother Diabetes mellitus Not available 07/21 09:52:03 Maternal Grandmother Hypertensive disorder [email or web address] Not available 07/21 09:52:03 Maternal Grandmother Diabetes mellitus [email or web address] Not available 07/21 09:52:03 Maternal Grandmother Heart disease [email or web address] Not available 07/21 09:52:03 Maternal Grandmother Cerebrovascu lar accident [email or web address] Not available 09:52:03 Maternal Grandfather Hypertensive disorder [email or web address] Not available 07/21 09:52:03 Maternal Grandfather Diabetes mellitus [email or web address] Not available 07/21 09:52:03 Paternal Aunt Malignant neoplasm of cervix uteri [email or web address] Not available 12:29:33 Medical History Condition Response Other Y High Blood Pressure Y Acid Reflux (GERD) Y Kidney or Bladder Problems Y GI Problems Allergies Y Gynecological History Statement/Question Response Abnormal Pap N STIs/STDs N HPV Vaccine N Most Recent Mammogram 06/19/2021 Age at Menarche 8 Current Control Method Vaginal Rin g Age at First Child 13 If Post Menopausal, Age at Menopause Sexually Active? Y Menses Monthly No Date of Last Pap Smear 10/10/2020 Sexual Problems? N LMP Unknown Desired Control Method Vaginal Rin g Obstetrics History GPAL:G 2 P 1 0 1 1 Type Value Multiple Births 0 Full Term 1 Induced 1 Spontaneous 0 Premature 0 Living 1 Ectopics 0 Total 2 Immunizations Vaccine Type Date Status Note Provider Nam e and Address Organization Details Recorded Time COVID-19, mRNA, LNP-S, PF, 30 mcg/0.3 mL dose 1 completed Not Available [facility] 10/23/2023 18:56:26 COVID-19, mRNA, LNP-S, PF, 30 mcg/0.3 mL dose 1 completed Not Available [facility] 10/23/2023 18:56:26 Influenza, split virus, quadrivalent, preservative 6 completed Not Available [facility] 10/22/2019 02:44:18 pneumococcal polysaccharide PPV23 6 completed Not Available [facility] 10/23/2023 18:56:27 Influenza, split virus, quadrivalent, PF 5 completed Not Available [facility] 10/23/2023 18:56:27 Influenza, split virus, quadrivalent, PF 0 completed Not Available [facility] 10/23/2023 18:56:27 Influenza, split virus, quadrivalent, PF 8 completed Not Available [facility] 10/23/2023 18:56:27 COVID-19, mRNA, LNP-S, PF, 30 mcg/0.3 mL dose 1 completed Not Available [facility] 10/23/2023 18:56:27 Influenza, split virus, quadrivalent, PF 7 completed Not Available [facility] 10/23/2023 18:56:27 Tdap 7 completed Not Available [facility] 10/22/2019 02:34:19 Influenza, split virus, quadrivalent, preservative 9 completed Not Available [facility] 10/22/2019 02:42:38 Influenza, split virus, quadrivalent, PF 1 completed Gale Kwong [place] null, [place] [facility] 07/05/2021 12:17:56 Influenza, split virus, quadrivalent, preservative 2 completed CARY FERNANDEZ Attn: Accounting[address] [place], [address], [place] [facility] 07/15/2022 13:59:15 Influenza, split virus, trivalent, PF 4 completed Gary Skaggs null, [place] [facility] 07/21/2024 14:12:57 Influenza, split virus, trivalent, PF 5 completed Gary Skaggs null, [place] [facility] 07/19/2025 15:19:45 Past Encounters Encounter ID Performer Location Encounter Start Date Encounter Closed Date Diagnosis/Indication Diagnosis SNOMED-CT Code Diagnosis ICD10 Code Diagnosis IMO Codes Diagnosis Note [id number] [facility] [address] [place] [address] 08/23/2014 19:57:38 08/24/2014 14:06:37 Morbid obesity 452256152 Diabetes mellitus [id number] Brittany Olmos MD [address] [address] 10/18/2014 15:40:57 10/18/2014 16:54:57 Cholecystitis 73726633 will f/u w/ surg next wk--lab before refill hydrocodon e [id number] Brittany Olmos MD [address] [address] 12/13/2014 10:29:59 12/13/2014 12:17:45 Impaired glucose tolerance 3766808 reviewed diet for diabetes-- try to follow reg check BS-s Fasting and 2hr pp x 2wk--every -other-day ---bring in values and will decide how to proceed [id number] Brittany Olmos MD [address] [address] 01/30/2015 10:32:45 01/30/2015 11:42:30 Impaired glucose tolerance 3047778 cont to follow diet--watc h sugar HS snack of protein to prevent low am sugar Itching of skin 176300785 repeat Liver function and kidney function [id number] Magan Zuniga MD [address] [address] 03/06/2015 15:32:03 03/06/2015 16:28:50 Sinusitis 51789659 History of ulcerative colitis [id number] Casie Moncada [facility] [address] 06/08/2015 10:29:54 06/08/2015 11:37:37 Palpitations 09622124 reviewed diet--drin helen more caffeine-- will cut back will be off prednisone soon--if still w/ sx--get holter monitor [id number] Brittany Olmos MD [address] [address] 07/17/2015 13:59:56 07/17/2015 14:49:49 Impaired glucose tolerance 6626511 R73.02 cont watching diet try to check bs occas Palpitations 24613818 R0 0.2 will get holter monitor [id number] Freddy Singletary MD [facility] [place] ([place] UND[place] [address] [facility] [place] [address] 09/21/2015 10:18:54 09/24/2015 12:12:10 Gynecologic examination 14696596 Z01.419 Uses contraception 40136 004 Z30.49 nuvaring Erx [id number] Brittany Olmos MD [address] [address] 01/14/2016 11:18:21 01/14/2016 13:09:01 Impaired glucose tolerance 6904763 R73.02 reviewed lab cont watching diet cont to check bs occas--2-3 x wk is ok Ulcerative colitis 20215 004 K51.018 reviewed old records--n eeds to contact Dr Gilda galdamez [facility]--did well on steroids but realizes she cant stay on them. insurance will not cover Entocort-- may try again Rosacea 073274273 L71.9 will try topical metrogel [id number] Salvatore Peters MD [address] [address] 02/15/2016 11:19:07 02/15/2016 12:27:29 Acute sinusitis 51177978 J01.90 [id number] Salvatore Peters MD [address] [address] 06/17/2016 14:13:57 06/17/2016 15:12:27 Acute bronchitis 26293850 J20.9 [id number] Salvatore Peters MD [address] [address] 06/30/2016 16:51:08 06/30/2016 17:25:30 Wheezing symptom 836107340 R06.2 With fatigue. Stop carvedilol as this may be the cause. [id number] Mel Headley MD [address] [address] 07/21/2016 09:34:42 07/23/2016 15:53:28 Impaired glucose tolerance 1225113 R73.02 reviewed lab. doing ok on blood sugars as long as she's off predinsone --cont to watch Ulcerative colitis 66446 004 K51.018 discussed needing another colonoscop y. also discussed getting on medical marijuana- -thinking about seeing dr who does that [id number] Freddy Dan- MD Hayder [facility] ([place] UND[place] [address] [place] [address] 09/22/2016 11:31:40 10/08/2016 11:01:28 Morbid obesity 465145096 E66.01 Gynecologi c examination 00281379 Z01.411 pt reports had3D Mammo done on Jul 2016 and it was Normal [id number] Salvatore Peters MD [address] [address] 01/01/2017 12:16:47 01/02/2017 11:21:28 Acute bronchitis 64590984 J20.9 [id number] Salvatore Peters MD [address] [address] 01/20/2017 11:20:39 02/19/2017 13:43:11 Diabetes mellitus 56094085 E13.65 Controlled well with diet. 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 At this time she on MTX. Blepharospasm 17134231 G 24.5 Ulcerative colitis 66090 [address] Winters is GI. [id number] Salvatore Peters MD [address] [address] 06/05/2017 13:59:06 06/11/2017 15:06:03 Diabetes mellitus 07199005 E13.65 Controlled well with diet. Ulcerative colitis 82859 [address] Winters is GI. Dyspnea on exertion 6084 5006 R06.09 MTX toxicity? Inc folic acid to 5 mg daily. [id number] Salvatore Peters MD [address] [address] 06/30/2017 14:14:23 07/06/2017 16:11:09 Diabetes mellitus 27330837 E13.65 Controlled well with diet. Ulcerative colitis 98612 [address] Winters is GI. Medrol dsoe pack. Dyspnea on exertion 6084 5006 R06.09 Echo and CXR normal. Active or passive immunization 673900342 Z23 [id number] Salvatore Peters MD [address] [address] 07/28/2017 14:12:12 07/31/2017 15:50:03 Morbid obesity 967394216 E66.01 Diabetes mellitus 823589 09 E13.65 Controlled well with diet. Ulcerative colitis 06136 [address] Winters is GI. Can take 2.5 mg prednisone dose as needed. Mesalamine is not covered by her insurance any more. She is allergic to sulfa and cant take sulfasalaz ine. She is going to look into some other GI specialist in [facility]. Erythema multiforme 3671 5001 L51.9 Side effect of MTX on thighs, pt reassured. Vitamin D deficiency 347 48627 E55.9 Level 45 recently, tamir hold off further supplement ation, then recheck later. [id number] Salvatore Peters MD [address] [address] 08/25/2017 14:05:53 09/01/2017 09:07:12 Ulcerative colitis 34989383 K51.90 Prednisone helping a lot. Continues with MTX injections weekly. She is waiting on GI in [facility] office to call her back. Monitor weight., Diabetes mellitus 902247 09 E13.65 Controlled well with diet. She gets her eyes checked in 2 weeks. [id number] Salvatore Peters MD [address] [address] 11/24/2017 10:31:20 12/02/2017 12:48:43 Diabetes mellitus 27081748 E13.65 Controlled well with diet. Ulcerative colitis 33616 004 K51.90 Continues with MTX injections weekly. [id number] PATRICK Pérez NP [address] [address] 03/23/2018 12:08:54 03/26/2018 16:02:37 Ulcerative colitis 65589151 K51.90 -Continue care with Dr. Winters Diabetes mellitus 067843 09 E11.9 -HgA1C 5.4 [id number] Edgar Bashir DO [facility] ([place] UND[place]) [address] [place] [address] 03/30/2018 11:55:46 03/31/2018 14:21:09 Gynecologic examination 79824730 Z01.480 [id number] Ya Yepez MD [address] [address] 08/24/2018 09:32:22 08/25/2018 10:16:41 Administration of influenza vaccine 08680733 Z23 [id number] Ya Yepez MD [address] [address] 03/07/2019 11:32:23 03/07/2019 13:59:04 Morbid obesity 579173769 E66.01 - Signed paperwork for [employer]- Advised to continue walking daily for about 30 minutes- A1C does not show concern of diabetes Pain of mu ltiple joints 42362486 M25.50 - Discussed ordering labs- Advised if labs are normal, will send for an xray of her knees- Discussed weight loss and trying to walk daily- Provided a 5 day course of steroid to help with inflammati on Ulcerative colitis 73596 004 K51.90 - Patient seeing Dr. Winters regularly- Has started a new round of medication s- She may want to switch to a different GI doctor because she feels treatment is not effective- Discussed talking with him about her concerns [id number] Trevon Mccann MD [facility] ([place] UND[place]) [address] [place] [address] 03/31/2019 11:22:37 04/01/2019 11:42:04 Gynecologic examination 85599058 Z01.419 --annual exam, Pap up to date, mammogram due after 12/22/2019 Contraception care 12720 5005 Z30.44 --requests to continue Nuvaring, states blood pressure is normally well controlled , aware of risks of thromboemb olism and wants to continue for menses suppressio n [id number] Ya Yepez MD [address] [address] 07/11/2019 13:49:08 07/12/2019 09:38:20 Low back pain 315913414 M54.5 - Advised will contact nephrologi to see what else she can have for pain Morbid obesity 848396947 E66.01 - Follow up for Weight Watchers- Patient has lost 15 pounds since last visit- Continue with necessary dietary changes- Continue not drinking soda and eating out- Try to exercise as much as allowed [id number] Ya Yepez MD [address] [address] 07/21/2019 12:47:04 07/22/2019 13:05:04 Administration of influenza vaccine 47945396 Z23 [id number] Ya Yepez MD [address] [address] 07/05/2020 15:29:25 07/06/2020 10:46:11 Depression screening 846180814 Z13.31 - Negative depression screening Chronic ki dney disease stage 1 513089373 N18.1 - Patient sees her kidney doctor regularly- She was started on Clonidine and Losartan due to elevated blood pressure Morbid obesity 069049648 E66.01 - Patient is trying to do Weight Watchers as much as possible- It is hard with UC, but has to eat what she can tolerate Ulcerative colitis 92688 004 K51.90 - Patient recently switched from Dr. Winters because he retired to Dr. Pastrana- They are currently trying to get her medication s in order- She reports they are trying to get Humira approved once weekly C-reactive protein outside reference range 552317708 R79.82 - Patient will be seeing another rheumatolo gist later this month Adult [facility] th examination 946430996 Z00.00 - Patient sees [employer]PER[employer] provider for her women's health [facility] e- Patient will return for flu shot- Lab orders mailed to patient [id number] Ya Yepez MD [address] [address] 07/19/2020 15:51:24 07/20/2020 10:55:09 Administration of influenza vaccine 66951980 Z23 [id number] Ya Yepez MD [address] [address] 09/05/2020 15:07:45 09/06/2020 10:33:53 Xerostomia 82302881 K11.7 - Patient started on medication s that dry her secretions - She reports her mouth is dry and it makes it hard for her to swallow at times with just normal swallowing - She reports she has been sucking on candy and chewing gum- Advised to try and stop Zyrtec as that can dry her out more- She was started on GI medication s and was told they will make her dry. She reports they are working for her GI symptoms so she doesn't want to stop them- She is following up with GI next week to discuss medication s- Throat exam was normal- Patient denies choking episodes. She will seek care for worsening of symptoms [id number] Trevon Mccann MD [facility] ([place] UND[place]) [address] [place] [address] 10/10/2020 17:28:19 10/14/2020 21:27:05 Gynecologic examination 84406173 Z01.419 --WWE--see s primary provider at [facility] Contraception care 0859885 0866 Z30.44 --previous ly requested to continue Nuvaring, states blood pressure was normally well controlled , she was aware of risks of thromboemb olism and wanted to continue for menses suppressio n--today discussed continued hypertensi on with obesity and recommenda tion of discontinu ing Nuvaring due to risks--she agrees and declines need for contracept ion, offered POP but she declines Screening for malignant neoplasm of cervix 784682411 Z12.4 --last Pap 09/22/16 so repeated today Screening for malignant neoplasm of breast 450799276 Z12.39 --mammogra m up to date from 04/11/2020 Morbid obesity 764310400 E66.01 --BMI 49.8 Body mass index 40+ - severely obese 114254384 Z68.42 [id number] Ya Yepez MD [address] [address] 01/25/2021 14:54:11 01/28/2021 11:41:05 Pain in left foot 4883773550 45611 M79.672 - Will send for xray to R/O stress fracture - Patient was tender to touch on top of foot and bottom pad - Will send steroid to see if inflammati on cause - Advised to rest and elevate until we receive the xray results - RTC if symptoms fail to improve [id number] Ya Yepez MD [address] [address] 02/27/2021 11:32:54 02/28/2021 11:54:35 Increased frequency of urination 794401799 R35.0 - Urine will be sent for culture Acute urin bhavesh tract infection 649183242 N39.0 - Patient reports it started after her colonoscop y last week - Urine shows leukocytes - Will send for culture and start antibiotic - Advised to increase water intake - Contact office if symptoms worsen or fail to improve [id number] Ya Yepez MD [address] [address] 07/05/2021 11:01:36 07/08/2021 12:02:13 Morbid obesity 894879375 E66.01 - Patient is trying to do Weight Watchers as much as possible- It is hard with UC, but has to eat what she can tolerate Ulcerative colitis 05679 004 K51.90 - Patient continues to see Dr. Pastrana- She continues her Humira and Hyoscyamin e Depression screening 171 080823 Z13.31 - Negative depression screening Gastroesop hageal reflux disease 660258381 K21.9 - Patient manages with Omeprazole - She reports the medication is effective Administra tion of influenza vaccine 77836831 Z23 [id number] Betty franklin MD [address] [address] 10/08/2021 11:04:08 10/08/2021 18:57:04 Dizziness 679070258 R42 - Ear exam normal- Will check labs- Patient does have a glucometer . Advised to check blood sugar fasting and when she is feeling symptoms- She will continue to monitor blood pressure- If labs are normal, will send antibiotic to see if that helps resolve dizziness- Possible vertigo, but patient reports it only happens in the morning- May consider a carotid US- Discussed diet before bed. She states she has been eating some carb-frien dly ice cream or brownies [id number] Betty franklin MD [address] [address] 01/24/2022 10:42:50 01/27/2022 09:55:33 Right side sciatica 1632641521 99143 M54.31 - Advised patient of stretches to complete- Suggested massage- She recently purchased a hot tub and is going to try that- Will send steroid- If not better upon completion of steroid, discussed physical therapy [id number] Betty franklin MD [address] [address] 07/15/2022 11:38:52 07/16/2022 10:18:10 Administration of influenza vaccine 20402703 Z23 - Flu vaccine provided in office today Obesity 994673156 E66.9 - Patient has lost 4 pounds since last office visit Pain of hip region 76856 002 M25.559 - Patient has continued lower back and bi-lateral hip pain- Reports feels like a constant bruise- Previous rheumatolo gy note stated an MRI would be ordered to R/O sacroiliit is. Previous x-ray of hips were normal, but did show SI joint arthritis- Normal straight leg raise and no pain elicited with abduction or adduction movement of hip- Will order MRI [id number] Betty franklin MD [address] [address] 08/12/2022 15:23:53 08/13/2022 09:15:42 Neck pain 72239429 M54.2 - Limited ROM- Unable to move neck fully from side to side- Will send muscle relaxer- Continue using heat- Contact office if no improvemen t in symptoms or they worsen [id number] Betty franklin MD [address] [address] 09/09/2022 10:18:13 09/09/2022 17:58:41 Urinary symptoms 987736406 R39.9 [id number] Betty franklin MD [address] [address] 10/21/2022 11:24:46 10/22/2022 15:57:57 Low back pain 489653158 M54.50 - CT shows arthritis- Referral was sent to an orthopedic provider, but she has not heard from them- Will try short course of steroid Morbid obesity 688722575 E66.01 - Gained 3 pounds since last visit Arthropath y of lumbar facet joint 226204095 M47.816 - Creating a new referral due to other provider not calling patient or myself when I called their office [id number] Raj Capellan MD [address] [address] 08/13/2023 12:40:14 08/24/2023 16:10:50 Persistent cough 995231506 R05.3 [id number] Janie Nicholas DO [address] [address] 10/21/2023 11:08:55 10/26/2023 16:07:54 Cough variant asthma 370524232 J45.991 At this time, the patient will take Lilly over-the-c ounter I will give her a prescripti on for montelukas t 10 mg 1 p.o. daily, she will continue using her albuterol inhaler the appropriat e use of the inhaler was described. 10 minutes after she uses the albuterol inhaler she will use the fluticason e steroid inhaler. The patient will rinse her mouth after use. She will come back in 2 weeks. She will also continue her steroids and antibiotic s orally to completion . [id number] Janie Nicholas [address] [address] 11/04/2023 11:00:29 11/05/2023 09:48:48 Morbid obesity 323003325 E66.01 Cough variant asthma 409 443965 J45.991 At this time, we will continue our fluticason e inhaled steroid montelukas t and we will follow-up in 3 months. At some point I would like to try to titrate the patient off of her oral steroids or rather inhaled steroids, which is standard operating procedure and see if she will tolerate it. Or she may end up having to use it intermitte ntly during certain seasonal cycles. Further recommenda tions to follow will refill both montelukas t and inhaler [id number] Janie Nicholas DO [address] [address] 11/25/2023 15:16:01 11/26/2023 16:27:31 Overweight 049114386 E66.3 Reviewed Pain in left foot 644278 0385 86133 M79.672 Will get x-rays of left foot, recommend Motrin or Advil 200 mg tablets OTC 3 times a day with food. Patient knows she must take it with food or it could result in gastritis. Further recommenda tions to follow Pain of le ft ankle joint 1002038483 6599791 M25.572 Same as above [id number] Janie Nicholas [address] [address] 01/04/2024 15:11:00 01/05/2024 11:01:52 Overweight 157428991 E66.3 Reviewed Urinary symptoms 7705591 08 R39.9 Patient's UA was positive for nitrates and leukocytes , will send out Cipro 500 mg 1 p.o. twice daily for 5 days await sensitivit y results [id number] Janie Nicholas [address] [address] 02/02/2024 09:43:14 02/02/2024 12:32:21 Adult health examination 586783950 Z00.00 Physical exam unremarkab le will team routine labs Essential hypertension 66732230 I10 Blood pressure is well controlled will obtain routine labs Morbid obesity 114510186 E66.01 Reviewed Depression screening 171 307445 Z13.31 Reviewed Primary fi bromyalgia syndrome 94114088 M79.7 Will increase the dose of the patient's duloxetine follow-up in 1 month [id number] Janie Nicholas [address] [address] 03/03/2024 13:58:47 03/03/2024 15:29:37 Morbid obesity 445335542 E66.01 Reviewed Fibromyalgia 779033625 M 79.7 At this time we will continue the duloxetine which she will take at night, and I will start bupropion HCl 150 mg 1 p.o. daily in the morning. No suicidal homicidal ideation, patient knows she should call she can call the office at any time if overwhelme d. I will follow-up with the patient in 1 month risk and side effects discussed. Idiopathic peripheral neuropathy 50438372 G60.9 For the patient's peripheral neuropathy , in addition to duloxetine , the patient is a poor candidate for gabapentin as it causes mood changes, I recommend capsaicin cream OTC. The patient is to apply the cream to the foot twice a day, and then rinse hands after use as failing to do so could result in pepper spraying the patient's eyes. Follow-up in 1 month. [id number] Janie Nicholas [address] [address] 04/04/2024 14:16:52 04/05/2024 10:22:24 Morbid obesity 301471265 E66.01 Reviewed Idiopathic peripheral neuropathy 04338411 G60.9 At this time, the etiology of the neuropathy is unknown. The patient has no history of diabetes, she does have a history of congenital solitary kidney without proteinuri a and therefore no amyloidosi s, she does have a history of IBS and had been on methotrexa te, but at least during that time there is evidence that she was on folic acid and routinely picked it up from her pharmacy. Insurance denied MRI of the lumbar spine. She has decreased sensation on microfilam ent testing, and blunted reflexes. She is currently taking duloxetine , failed therapy with gabapentin . Did attempt to also give bupropion as a synergisti c agent, which also failed. Will send the patient to pain management . Primary fi bromyalgia syndrome 86100309 M79.7 We have increased the patient's duloxetine , and I did add bupropion HCl to this for synergisti c purposes, patient noticed no significan t improvemen t but no untoward side effects. Will titrate the patient off of the bupropion. She will take the medication every other day for 2 weeks and then every third day for a week and then off. Patient knows to call the office if she has any withdrawal symptoms or concern. Long-term current use of steroid 169306957 Z79.52 Will attempt to get a DEXA scan [id number] Janie Nicholas [address] [address] 06/14/2024 10:21:41 06/14/2024 20:03:13 Morbid obesity 289763880 E66.01 Reviewed Iron defic iency anemia 52222270 D50.9 The patient is under the care of GI for this. She notes that she did get a colonoscop y I do not have the results but that the colonoscop y was negative. They did not perform EGD and the patient is not complainin g of stomach problems. She is on omeprazole at this time. The patient will remain on iron sulfate and follow-up here in 3 months. She will follow-up in with GI in 6. If she remains anemic, may recommend that she gets an EGD Poor sleep pattern 41420 8000 G47.8 Will send patient for sleep study [id number] Janie Nicholas [address] [address] 06/30/2024 09:42:54 06/30/2024 14:26:20 Morbid obesity 146844328 E66.01 Reviewed Fatigue 98837411 R53.83 I suspect the patient's fatigue may be related to the beta-block er and clonidine that she is on. See below Essential hypertension 68666645 I10 At this time we will discontinu e the patient's labetalol, I will put her on carvedilol 12.5 mg twice daily, she will follow-up in 3 weeks Insomnia 295311897 G47.0 0 Discontinu e clonidine will start trazodone [id number] Janie [address] [address] 07/21/2024 11:08:00 07/21/2024 18:06:18 Essential hypertension 26342070 I10 Will start the patient on spironolac tone hydrochlor othiazide and blood pressure in 3 months. Low back pain 072100198 M54.50 Will increase duloxetine to 40 mg twice daily Administra tion of influenza vaccine 96347702 Z23 [id number] Janie Nicholas [address] [address] 09/13/2024 09:39:41 09/14/2024 10:50:24 Morbid obesity 500399527 E66.01 Reviewed Essential hypertension 41760235 I10 Continue spironolac tone/hydro chlorothia zide will check basic metabolic panel today Iron defic iency anemia 05915147 D50.9 The patient does have a history of iron deficiency anemia, she has had colonoscop y and EGD, she is under the care of GI he is giving her iron sulfate, will check iron studies today [id number] Janie [address] [address] 01/09/2025 09:27:51 01/09/2025 14:54:18 Morbid obesity 696312945 E66.01 Reviewed Essential hypertension 39364856 I10 Continue spironolac tone/hydro chlorothia zide will check basic metabolic panel today Iron defic iency anemia 80226684 D50.9 Patient is scheduled for colonoscop y EGD in May his tory of cancer of colon 377431968 Z80.0 Will make sure the patient gets her EGD he Primary fi bromyalgia syndrome 69008475 M79.7 Patient is doing very well on duloxetine , will lower the dose from 60-30 per patient request. Allergic rhinitis 197655 04 J30.9 Will refill meds [id number] Janie Nicholas [facility] [address] [place] [address] 06/19/2025 14:58:21 06/20/2025 16:16:13 Obese class III 920079728 E66.813 E66.3 8827534899 Reviewed Spasm of m uscle of lower back 0234726105 3432675 M62.830 405169 Will give cyclobenza tita 5 mg in the evening only as the patient cannot drive under the influence. The patient can take the pill up to 3 times a day if she is not driving. I do recommend that the patient as she already gets massages coordinate the medication as follows. The patient will take the medication 30 minutes prior to massage. The patient has to have somebody drop her off at [place] [facility] as she cannot operate a motor vehicle. The patient will then get the massage, go home and sit in an absence TUB for no more than 15 minutes. If the patient is really fatigued she should not get in the tub. The patient will then rinse off the Epsom salts with lukewarm water, and will then take another muscle relaxer that evening. Patient will also take Celebrex 200 mg 1 p.o. twice daily for no more than 10 days follow-up in 3 weeks [id number] Janie Nicholas [facility] [address] [address] 07/19/2025 10:23:27 07/19/2025 17:14:30 Obese class III 943861390 E66.813 E66.3 4008938861 Reviewed Depression screening negative 0843742283 28906 Z13.31 60336226 Reviewed Influenza vaccination given 1452969711 9109 Z23 03069958 Administer ed Hypertensive disorder 38 377792 I10 71034142 at this time I will have the patient stop the spironolac tone/hydro chlorothia zide, the patient's blood pressure is 90/50. Patient is asymptomat ic but she is having muscle spasms which I suspect is secondary to this. Patient will come back in 3 weeks we will recheck her blood pressure and ensure she has no appreciabl e edema Spasm 79757099 M62.838 93520 Likely secondary to overaggres sive diuresis with cellular dehydratio n Lesion of skin of face 4750665494 06 L98.9 Will send to dermatolog y Health Concerns Section Related Observation LastModified by Organization Detai ls LastModified Time None Recorded Concern Status LastModified by Organization Details LastModified Time None Recorded Advance Directives Directive None Recorded Payers Insurance Date Sequence Insurance Name Policy Number Policy Julio Covered Member ID Julio Member ID Guarantor Name 04/04/2024 1 [facility] PRIOR TO 04/04/2021 (MEDICAID REPLACEMENT - HMO) Nataliya Carter [id number] Nataliya Carter 04/04/2024 1 [facility] PRIOR TO 04/04/2021 (MEDICAID REPLACEMENT - HMO) Nataliya Carter [id number] Nataliya Carter 04/04/2024 1 [facility] PRIOR TO 04/04/2021 (MEDICAID REPLACEMENT - HMO) Nataliya Carter [id number] Nataliya Carter 04/04/2024 2 [place] [employer] Nataliya Foreman or [id number] Nataliya Carter 07/16/2025 1 [facility] ON OR AFTER 04/04/21 (MEDICAID REPLACEMENT - HMO) Nataliya Carter [id number] Nataliya Carter 04/04/2024 1 [place] DEPARTMENT [place] Nataliya Foreman or [id number] Nataliya Carter Notes Date Note Type Note Provider Name and Address Organization Details Recorded Time 07/21/2024 text/html The patient is a pleasant 49-year-old female past medical history of essential hypertension and chronic low back pain presents to the office follow-up regarding these issues. With SPECT patient chronic low back pain she cannot take NSAIDs, or high-dose Tylenol. Therefore we are trying to manage it with other options. We have been using duloxetine which is effective but she still having some pain. In addition, the patient also is doing better from a blood pressure standpoint, but we still need to titrate meds to a blood pressure less than 130/80. We will do both of those things. Patient denies chest pain palpitations nausea vomit shortness of breath dizziness orthopnea or PND. 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 Last encounter, I started the patient on spironolactone hydrochlorothiazide. The patient is doing much better, her blood pressure today is beautiful at 114/70. The patient also notes that she has been on iron under the care of GI for ulcerative colitis. The patient would like to get iron studies today to see how she is doing. Patient denies issues with constipation. See assessment and plan Janie Nicholas DO Attn: Accounting,[address] , [place], [address], [facility] [place] 09/13/2024 09:49:55 01/09/2025 text/html The patient is a very pleasant 49-year-old female past medical history of essential hypertension, primary insomnia, ulcerative colitis, allergic sinusitis, iron deficiency anemia secondary to UC, and a family history of colon cancer presents to the office follow-up routine issues. Overall the patient is doing very well in her usual state of health. The patient does also have a history of fibromyalgia and is currently on duloxetine. The patient would like to go down on the dose of duloxetine from 40-30 as she feels that the 40 makes her somewhat tired. Other than this the patient is doing very well, denies suicidal homicidal ideation and states that from a psychiatric standpoint she is happy. Patient denies chest pain palpitations nausea vomit shortness of breath dizziness orthopnea or PND. Patient is due for colonoscopy in May 2025 with her family history and history of UC. Patient will be getting her routine gynecologic care next month and will be scheduled for mammogram in June. Overall the patient is in her usual state of health can afford her medications without difficulty and is compliant see assessment and plan Janie Nicholas DO Attn: Accounting,[address] , [place], [address], [facility] 01/09/2025 09:50:00 06/19/2025 text/html The patient presents with chief complaint of left-sided back pain. The patient notes that the back pain is worse with truncal rotation, and a palpation along the posterior iliac brim or rim. The patient does stand on concrete all day, and this is likely a contributing factor. See assessment and plan Janie Nicholas DO Attn: Accounting,[address] , [place], [address], [facility] 06/19/2025 15:23:48 07/19/2025 text/html The patient is a very pleasant 50-year-old female presents to the office for muscle spasms and review of her recent vitals, her blood pressure is 90 mmHg systolic, the patient denies orthostasis. The patient's lower blood pressure was unnoticed by her however this is most likely the cause of her fatigue. We will make adjustments to her medications today. Also the patient has some facial lesions that she would like evaluated by dermatology which and happy to have addressed. See assessment plan Janie Nicholas DO Attn: Accounting,[address] , [place], [address], [facility] 07/27/2025 09:50:08 OBGyn Episode No OBEpisode recorded.
--- OUTSIDE RECORDS SUMMARY | 2025-07-28 00:55 | XMS_ITS | Encounter Summary ---
Author Organization [facility] Address [address] [place] [id number] Care Team Providers Care Paper Twister Tender Name Role Phone Jenna Young SAHIL Primary Care Provider [phone] Encounter Details Date Type Department Care Team (Late st Contact Info) Description 08/05/2020 Prep for Procedure [facility] [place] [address] Inocencio Pastrana MD [address] [address] Social History Tobacco Use Types Packs/Day Years [...] have Coronavirus / COVID-19? No / Unsure 08/08/2020 9:48 AM CLINICAL SAFETY MANAGER documented as of this encounter Plan of Treatment Not on file documented as of this encounter Results * PRE-SURGICAL/PRE-PROCEDURE CORONAVIRUS (COVID 19) (08/05/2020 9:37 AM CLINICAL SAFETY MANAGER) CORONAVIRUS SARS COV 2 PCR (RESP) NOT DETECTED NOT DETECTED 08/06/2020 8:16 PM CLINICAL SAFETY MANAGER [employer] Comment: A Not Detected (negative) test result [...] providers and patients using the following websites: [email or web address]://[email or web address]/Covid-19/HCP/NAAT/fact-sheet2 https://www.[employer]Wibbitz/home/Covid-19/Patients/NAAT/ fact-sheet2 This test has been authorized by the FDA under an Emergency Use Authorization (EUA) for use by authorized laboratories. Due to the current public health emergency, [facility] is receiving a high volume of samples [...] about COVID-19 can be found at the [facility] website: [email or web address]. Test performed at [employer] [place] [address] [place] [address] Director: AYLEEN MCNEIL DO,MPH FIRST TEST YES 08/05/2020 1:00 PM [facility] EMPLOYED IN HEALTHCARE NO 08/05/2020 1:00 PM CLINICAL SAFETY MANAGER [facility] SYMPTOMATIC DEFINED BY CDC NO 08/05/2020 1:00 PM CLINICAL SAFETY MANAGER [facility] DATE OF SYMPTOM ONSET NO 08/05/2020 1:43 PM CLINICAL SAFETY MANAGER [facility] HOSPITALIZATION STATUS NO 08/05/2020 1:00 PM CLINICAL SAFETY MANAGER [facility] PATIENT IN ICU NO 08/05/2020 1:00 PM CLINICAL SAFETY MANAGER [facility] RESIDENT OF [facility] NO 08/05/2020 1:00 PM CLINICAL SAFETY MANAGER [facility] NOT 08/05/2020 1:00 PM CLINICAL SAFETY MANAGER [facility] PATIENT'S RACE WHITE OR 08/05/2020 1:00 PM CLINICAL SAFETY MANAGER [facility] ETHNICITY NONHISPANIC 08/05/2020 1:00 PM CLINICAL SAFETY MANAGER [facility] SOURCE (QST) NASOPHARYNGEAL SWAB 08/05/2020 1:00 PM CLINICAL SAFETY MANAGER [facility] NASOPHARYNGEAL SWAB / Unknown 08/05/2020 9:37 AM CLINICAL SAFETY MANAGER us Inocencio Pastrana MD MICROBIOLOGY - [facility]AL [facility] Final Result [facility] [address] [place] [address], [employer] [facility] [id number] [place] [address], documented in this encounter Visit Diagnoses Diagnosis Ulcerative colitis ([facility])- Primary Ulcerative colitis, unspecified documented in this encounter Additional Health Concerns Infection Onset Date Last Indicated Resolved Time COVID-19 Rule Out 08/05/2020 08/05/2020 08/06/2020 8:16 PM CLINICAL SAFETY MANAGER COVID-19 Rule Out 02/18/2021 02/18/2021 02/19/2021 4:35 PM CDT documented as of this encounter Care Teams Paper Twister Tender Relationship Specialty Start Date End Date Jenna Young NP [address] [place] [id number] PCP - General Nurse Practitioner Family 05/04/19 documented as of this encounter
--- OUTSIDE RECORDS SUMMARY | 2025-07-28 00:55 | XMS_ITS | Encounter Summary ---
Author Organization [facility] Address [address] [place] [address] Care Team Providers Care Staff Analyst Name Role Phone Jenna Young SAHIL Primary Care Provider [phone] Encounter Details Date Type Department Care Team (Late st Contact Info) Description 07/31/2020 Prep for Procedure [facility] [place] [address] Inocencio Pastrana MD [address] [id number] Social History Tobacco Use Types Packs/Day Years [...] have Coronavirus / COVID-19? No / Unsure 07/31/2020 9:31 AM CDT documented as of this encounter Plan of Treatment Not on file documented as of this encounter Visit Diagnoses Not on filedocumented in this encounter Additional Health Concerns Infection Onset Date Last Indicated Resolved Time COVID-19 Rule Out 08/05/2020 08/05/2020 08/06/2020 8:16 PM CASKET TRIMMER COVID-19 Rule Out 02/18/2021 02/18/2021 02/19/2021 4:35 PM CDT documented as of this encounter Care Teams Staff Analyst Relationship Specialty Start Date End Date Jenna Young NP [address] [place] [address] PCP - General Nurse Practitioner Family 05/04/19 documented as of this encounter
--- OUTSIDE RECORDS SUMMARY | 2025-07-28 00:55 | XMS_ITS | Data Portability ---
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 Plan of Treatment Reminders Order Date Submit Date Provider Last Modified By Organization Details Last Modified Time Details Appointments None recorded. Lab HPV E6+E7 mRNA, qualitative PCR, cervix 2024 025 [facility], [address] [place], [address], 5 14:16:49 pap, LB - postmenopau mavis, no hormone replacement 2024 025 [facility], [address] [place], [address], 5 13:22:49 HPV E6+E7 mRNA, qualitative PCR, cervix 2023 024 [employer] [facility], [address] [place], [address], 4 16:33:17 pap, LB 2023 024 [facility], [address] [place], [address], 4 13:46:02 FSH (follicle-s timulating hormone), serum 2022 023 [facility], [address] [place], [address], 10:35:34 Referral None recorded. Procedures None recorded. Surgeries None recorded. Imaging US, transvagina l 2022 023 EMILY Not available 17:12:32 Medication Orders estradiol 0.01% (0.1 mg/gram) vaginal cream 2024 025 [id number], [address] [address] [place], [place], [id number], 5 10:51:19 estradiol 0.01% (0.1 mg/gram) vaginal cream 2023 024 [facility], [address] [facility], [place], [place], [id number], 10:39:16 Patient TargetsNo targets recorded. Patient Instructions Encounter Date Encounter Id Patient Instructions Last Modified By Organization Details Last Modified Time 05/19/2023 [id number] vaginal bleeding after menopause: care instructions [email or web address] Not available 05/19/2023 16:41:35 05/29/2023 [id number] vaginal bleeding after menopause: care instructions [email or web address] Not available 05/29/2023 11:09:21 01/05/2024 [id number] Patient Health Questionnaire-9* kbritsch Not available 01/13/2024 14:49:41 eating healthy foods: care instructions Not available 01/05/2024 10:39:05 general health care education Not available 01/05/2024 10:39:04 body mass index: care instructions Not available 01/05/2024 10:39:04 02/14/2025 [id number] Patient Health Questionnaire-9* kbritsch Not available 02/17/2025 17:25:43 eating healthy foods: care instructions Not available 02/14/2025 10:51:12 general health care education Not available 02/14/2025 10:51:12 body mass index: care instructions Not available 02/14/2025 10:51:12 Reason for Referral None Reported. Results Created Date Observation Date Name Description Value Unit Range Abnormal Flag Note LastModifiedBy Organization Detail LastModifiedTime 05/30/2005/30/2023 FSH FSH 135.0 mIU/m L Refer ence Range s are for femal es aged 18 years - Adult Ellen l Menst ruati ng Femal e: Folli cular phase : 2.5-1 0.2 mIU/m L Mid-C ycle Peak: 3.4-3 3.4 mIU/m L Lutea l phase : 1.5-9 .1 mIU/m L Pregn ant: <0.3 mIU/m L Post- menop ausal : 23.0- 116.6 mIU/m L Not Available [address] [place], [address], 05/30/2023 10:35:34 01/05/20 24 01/06/2024 HPV HIGH RISK HPV high risk Negati ve negati ve normal The HPV High Risk assay is inten ded for use as co-te sting with cytol ogy and not as a subst itute for regul ar cervi kenroy cytol ogy scree love. This assay is not inten ded for use as a scree love devic e for women under age 30 with ellen l cervi kenroy cytol ogy. Not Available [facility] [address] [place] [address], [address], 01/06/2024 16:33:17 01/05/20 24 01/08/2024 THINP REP TIS PAP clinical information: normal Infor matio n not provi ded Not Available [facility] [address] [place], [address], 01/08/2024 13:46:02 01/05/20 24 01/08/2024 THINP REP TIS PAP LMP: normal INFOR MATIO N NOT PROVI DED Not Available [employer] [address] [place], [address], 01/08/2024 13:46:02 01/05/20 24 01/08/2024 THINP REP TIS PAP prev. Pap: normal INFOR MATIO N NOT PROVI DED Not Available [address], [address], 01/08/2024 13:46:02 01/05/20 24 01/08/2024 THINP REP TIS PAP prev. BX: normal INFOR MATIO N NOT PROVI DED Not Available [address], [address], 01/08/2024 13:46:02 01/05/20 24 01/08/2024 THINP REP TIS PAP source: normal Cervi x Not Available [address], [address], 01/08/2024 13:46:02 01/05/20 24 01/08/2024 THINP REP TIS PAP statement of adequacy: normal Satis facto ry for evalu ation . Endoc ervic al/tr ansfo rmati on zone compo nent prese nt. Age and/o r menst rual statu s not provi ded Not Available [address], [address], 01/08/2024 13:46:02 01/05/20 24 01/08/2024 THINP REP TIS PAP interpretati on/result: normal Cytol ogy Resul ts: Negat price for intra epith elial lesio n or corine doherty . Not Available [address] [place], [address], 01/08/2024 13:46:02 01/05/20 24 01/08/2024 THINP REP TIS PAP comment: normal This Pap test has been evalu ated with compu ter jensen chary techn ology . Not Available [address], [address], 01/08/2024 13:46:02 01/05/20 24 01/08/2024 THINP REP TIS PAP cytotechnolo gist: normal BKA, CT( CP) CT scree love locat ion: [place] [address] [place] [address] Not Available [facility] [place] [address] [place], [address], 01/08/2024 13:46:02 01/05/20 24 01/08/2024 THINP REP TIS PAP comment EXPLA NATOR Y NOTE: The Pap is a scree love test for cervi kenroy cance r. It is not a diagn ostic test and is subje ct to false negat price and false posit price resul ts. It is most relia ble when a satis facto ry sampl e, regul josi obtai juana, is submi tted with relev ant clini kenroy findi ngs and histo ry, and when the Pap resul t is evalu ated along with histo monika and curre nt clini kenroy infor matio n. Not Available [facility] [address] [address] [address], [place], [address], 01/08/2024 13:46:02 02/15/20 25 02/16/2025 HPV HIGH RISK HPV high risk Negati ve negati ve normal The HPV High Risk assay is inten ded for use as co-te sting with cytol ogy and not as a subst itute for regul ar cervi kenroy cytol ogy scree love. This assay is not inten ded for use as a scree love devic e for women under age 30 with ellen l cervi kenroy cytol ogy. Not Available [facility] [address] [place], [address], 02/16/2025 14:16:49 02/15/20 25 02/22/2025 THINP REP TIS PAP clinical information: normal Postm enopa usal NO HORMO NE REPLA CEMEN T Not Available [facility] [address] [address] [address], [place], [address], 02/22/2025 13:22:48 02/15/20 25 02/22/2025 THINP REP TIS PAP LMP: normal PM Not Available [address], [address], 02/22/2025 13:22:48 02/15/20 25 02/22/2025 THINP REP TIS PAP prev. Pap: normal NONE GIVEN Not Available [address], [address], 02/22/2025 13:22:48 02/15/20 25 02/22/2025 THINP REP TIS PAP prev. BX: normal NONE GIVEN Not Available [address], [address], 02/22/2025 13:22:48 02/15/20 25 02/22/2025 THINP REP TIS PAP source: normal Cervi x Not Available [address], [address], 02/22/2025 13:22:48 02/15/2002/22/2025 THINP REP TIS PAP statement of adequacy: normal Satis facto ry for evalu ation . Endoc ervic al/tr ansfo rmati on zone compo nent prese nt. Not Available [address], [address], 02/22/2025 13:22:48 02/15/20 25 02/22/2025 THINP REP TIS PAP general categorizati on: abnormal Cytol ogy Resul ts: Epith elial Cell Abnor malit y Not Available [address], [address], 02/22/2025 13:22:48 02/15/20 25 02/22/2025 THINP REP TIS PAP interpretati on/result: abnormal Atypi kenroy Squam ous Cells of Undet ermin ed Signi fican ce (ASC- [place]) Not Available [address] [place], [address], 02/22/2025 13:22:48 02/15/20 25 02/22/2025 THINP REP TIS PAP comment: normal This Pap test has been evalu ated with sabrau sanchez techn ology . Sugge st clini kenroy corre latio n and follo w-up as clini hilda appro priat e Not Available [address] [address] [place], [address], 02/22/2025 13:22:48 02/15/20 25 02/22/2025 THINP REP TIS PAP cytotechnolo gist: normal MVB, CT( CP) CT Scree love Locat ion: [place] [address] [place] [address] Not Available [address] [address] [place], [address], 02/22/2025 13:22:48 02/15/20 25 02/22/2025 THINP REP TIS PAP pathologist: normal Ellen min M.D., Board Certi fied in Anato dorene Patho logy and Cytop athol ogy. Phone : [phone] (elec troni c signa ture) Patho logis t Relea se Date/ Time: 02/22 11:40 AM Not Available [place] [address] [address] [place], [address], 02/22/2025 13:22:48 02/15/20 25 02/22/2025 THINP REP TIS PAP comment EXPLA NATOR Y NOTE: The Pap is a scree love test for cervi kenroy cance r. It is not a diagn ostic test and is subje ct to false negat price and false posit price resul ts. It is most relia ble when a satis facto ry sampl e, regul josi obtai juana, is submi tted with relev ant clini kenroy findi ngs and histo ry, and when the Pap resul t is evalu ated along with histo monika and curre nt clini kenroy infor spring n. Not Available [facility] [address] [address], [place], [address], 02/22/2025 13:22:48 05/19/20 23 05/19/2023 US, trans vagin al No observ ation record ed. [email or web address] [address], [place], [address], 05/19/2023 20:27:44 08/17/20 23 08/17/2023 US, breas t, unila teral No observ ation record ed. [address], [address], 08/17/2023 16:16:07 08/17/20 23 08/17/2023 MAMMO , diagn ostic , digit al, unila teral No observ ation record ed. [address], [address], 08/17/2023 16:16:07 Result Notes None recorded. Problems Name Problem SNOMED Code Status Onset Date Resolution Date Notes Provider Name and Address Organization Details Recorded Time Essential hypertensi on 17593396 Active 2024 Laura Gastelum MD [address] [place] [address], [phone] , [facility] 5 14:12:18 Chronic kidney disease stage 1 729082149 Active 2024 followed by nephrolog y/Da Mary Laura Gastelum MD [address] [place] [address], [address] , [facility] 5 14:13:27 Ulcerative colitis 83049736 Active 2024 Laura Gastelum MD [address] [place] [address], [phone] , [facility] 5 14:14:16 Problem Notes None recorded. Procedures Surgical History Date Name Laterality Status Provider Name and Address Organization Details Recorded Time 02/15/20 25 Date of Last Pap Smear completed Laura Gastelum MD [address] [facility], [place], [address], [facility] 02/22/2025 19:41:10 09/05/20 24 Most Recent Mammogram completed Crys Higgins [facility] [employer] [facility] 02/14/2025 10:18:36 07/08/20 23 Hysteroscopy biopsy completed Leida [facility] 07/21/2023 10:37:04 02/07/20 23 Endometrial Biopsy completed Tori Zimmer MD [address] [facility], [place], [address], [facility] 02/06/2023 13:16:22 Colonoscopy completed Leida [facility] 12/29/2022 11:53:29 Gall bladder completed Leida [facility] 12/29/2022 11:53:29 C Section completed Leida [facility] 12/29/2022 11:53:29 Imaging Results None recorded. Procedure Notes None recorded. Medical Equipment None Reported. Allergies Allergen ID Allergen Name Allergen Category Reaction Reaction Severity Criticality Documentation Date Start Date Code Code System Note Provider Name and Address Organization Details Recorded Time 272737 Substance with sulfonami de structure and antibacte rial mechanism of action (substanc e) medicatio n Not available Not available Not available 12/29/2022 58188 8003 SNOMED [facility] 3 11:53:27 [id number] cat dander environme nt Not available Not available Not available 12/29/2022 [facility] 3 11:53:27 Medications Name Sig Start Date Stop Date Status Note LastModified by Organization Details LastModified Time cyclobenzap rine 10 mg tablet 02/06 completed Not Available Not Available Not Available amoxicillin 500 mg capsule TAKE 2 TABLETS BY MOUTH THREE TIMES DAILY FOR 5 DAYS 01/04 completed Not Available Not Available Not Available clonidine HCl 0.1 mg tablet TAKE 1 TABLET BY MOUTH EVERY NIGHT AT BEDTIME 02/14 completed Not Available Not Available Not Available prednisone 10 mg tablet 12/29 completed Not Available Not Available Not Available doxycycline hyclate 100 mg capsule TAKE 1 CAPSULE BY MOUTH TWICE DAILY FOR 7 DAYS 01/04 completed Not Available Not Available Not Available carvedilol 12.5 mg tablet TAKE 1 TABLET BY MOUTH TWICE DAILY active Not Available Not Available No t Available trazodone 50 mg tablet TAKE 1 TABLET BY MOUTH EVERY DAY active Not Available Not Available No t Available azithromyci n 250 mg tablet TAKE 2 TABLETS BY MOUTH FOR 1 DAY THEN TAKE 1 TABLET BY MOUTH EVERY DAY 01/04 completed Not Available Not Available Not Available ibuprofen 800 mg tablet 01/04 completed Not Available Not Available Not Available benzonatate 200 mg capsule TAKE 1 CAPSULE BY MOUTH EVERY 8 HOURS NEEDED FOR COUGH 01/04 completed Not Available Not Available Not Available ampicillin 500 mg capsule 02/06 completed Not Available Not Available Not Available promethazin e 6.25 mg/5 mL oral syrup TAKE 10 ML BY MOUTH FOUR TIMES DAILY NEEDED 01/04 completed Not Available Not Available Not Available spironolact one 25 mg-hydrochl orothiazide 25 mg tablet TAKE 1 TABLET BY MOUTH EVERY DAY active Not Available Not Available No t Available ondansetron HCl 4 mg tablet TAKE FIRST DOSE 30 MINUTES PRIOR TO STARTING PREP AND EVERY 6 HOURS NEEDED FOR NAUSEA AND VOMITING 02/14 completed Not Available Not Available Not Available prednisone 20 mg tablet TAKE 2 TABLETS BY MOUTH EVERY DAY FOR 4 DAYS 01/04 completed Not Available Not Available Not Available ciprofloxac in 500 mg tablet 02/14 completed Not Available Not Available Not Available hyoscyamine ER 0.375 mg tablet,exte nded release,12 hr TAKE 1 TABLET BY MOUTH EVERY 12 HOURS active Not Available Not Available No t Available benzonatate 100 mg capsule TAKE 1 CAPSULE BY MOUTH THREE TIMES DAILY FOR 10 DAYS 01/04 completed Not Available Not Available Not Available fluticasone propionate 44 mcg/actuati on HFA aerosol inhaler INHALE 2 PUFFS BY MOUTH TWICE DAILY active Not Available Not Available No t Available omeprazole 20 mg capsule,del ayed release Take 1 capsule every day by oral route. active Not Available Not Available No t Available montelukast 10 mg tablet TAKE 1 TABLET BY MOUTH EVERY DAY active Not Available Not Available No t Available gabapentin 100 mg capsule 12/29 completed Not Available Not Available Not Available labetalol 300 mg tablet TAKE 1 TABLET BY MOUTH TWICE DAILY 02/14 completed Not Available Not Available Not Available estradiol 0.01% (0.1 mg/gram) vaginal cream Insert 1 g twice a week by vaginal route, for vaginal and bladder health. active Not Available Not Available No t Available methylpredn isolone 4 mg tablets in a dose pack 12/29 completed Not Available Not Available Not Available albuterol sulfate HFA 90 mcg/actuati on aerosol inhaler INHALE 2 PUFFS BY MOUTH EVERY 6 HOURS NEEDED active Not Available Not Available No t Available loratadine 10 mg tablet TAKE 1 TABLET BY MOUTH EVERY DAY 02/14 completed Not Available Not Available Not Available cyclobenzap rine 5 mg tablet 12/29 completed Not Available Not Available Not Available bupropion HCl XL 150 mg 24 hr tablet, extended release TAKE 1 TABLET BY MOUTH EVERY DAY 02/14 completed Not Available Not Available Not Available duloxetine 30 mg capsule,del ayed release TAKE 1 CAPSULE BY MOUTH TWICE DAILY active Not Available Not Available No t Available duloxetine 60 mg capsule,del ayed release TAKE 1 CAPSULE BY MOUTH EVERY DAY 02/14 completed Not Available Not Available Not Available melatonin 05/19 completed Not Available Not Available Not Available Lilly 02/14 completed Not Available Not Available Not Available FeroSul 325 mg (65 mg iron) tablet TAKE 1 TABLET BY MOUTH DAILY. 02/14 completed Not Available Not Available Not Available Zyrtec 10 mg capsule Take by oral route. 01/04 completed Not Available Not Available Not Available duloxetine 40 mg capsule,del ayed release TAKE ONE CAPSULE BY MOUTH TWICE DAILY 02/14 completed Not Available Not Available Not Available folic acid 0.8 mg capsule Take by oral route. active Not Available Not Available No t Available Humira(CF) Pen 40 mg/0.4 mL subcutaneou s kit INJECT 1 PEN SUBCUTANE OUSLY EVERY WEEK active Not Available Not Available No t Available BinaxNOW COVID-19 Ag Self Test kit TEST DIRECTED TODAY 02/14 completed Not Available Not Available Not Available Vitals Date Recorded Body height Body mass index (BMI) Body weight Systolic And Diastolic Provider Name and Address Organization Details Last Updated DateTime 01/05/2024 162.56 cm 47.9 kg/m2 260240.5 5 g 138/82 mm[Hg] Maye Skinnerparvezaimee [facility] 01/05/2024 10:11:17 Date Recorded Body height Body mass index (BMI) Body weight Systolic And Diastolic Provider Name and Address Organization Details Last Updated DateTime 02/14/2025 162.56 cm 47 kg/m2 104115.31 g 128/82 mm[Hg] Crys Higgins [facility] 02/14/2025 10:14:47 Date Recorded Body height Body mass index (BMI) Body weight Systolic And Diastolic Provider Name and Address Organization Details Last Updated DateTime 05/19/2023 162.56 cm 47.9 kg/m2 853998.2 7 g 150/94 mm[Hg] Maye Skinnerparvezsimónlisa [facility] 05/19/2023 16:29:10 Date Recorded Body height Body mass index (BMI) Body weight Systolic And Diastolic Provider Name and Address Organization Details Last Updated DateTime 05/29/2023 162.56 cm 47.8 kg/m2 140939.12 g 140/88 mm[Hg] Leida Johnson [facility] [employer] [facility] 05/29/2023 10:46:18 Date Recorded Body height Body mass index (BMI) Body weight Systolic And Diastolic Provider Name and Address Organization Details Last Updated DateTime 07/21/2023 162.56 cm 48.6 kg/m2 532509.36 g 130/76 mm[Hg] Leida Johnson [facility] [employer] [facility] 07/21/2023 11:06:24 Social History Question Answer Notes LastModified by Organizat ion Details LastModified Time Tobacco Smoking Status Former Smoker Leida carmen, [facility] 12/29/2022 11:53:28 If You Are , What Was Your Level Of Alcohol Consumption Prior To ? Occasional [email or web address] Information not available 02/14/2025 How Many Years Have You Consumed Alcohol? 30 [email or web address] Information not available 12/29/2022 Are You Blind Or Do You Have Difficulty Seeing? No [email or web address] Information not available 12/29/2022 Are You Deaf Or Do You Have Serious Difficulty Hearing? No [email or web address] Information not available 12/29/2022 What Type Of Diet Are You Following? REGULAR [email or web address] Information not available 12/29/2022 What Is The Highest Grade Or Level Of School You Have Completed Or The Highest Degree You Have Received? [id number] [email or web address] Information not available 02/14/2025 When Did You Quit Smoking? 11-13yearssin celastciyamila te [email or web address] Information not available 02/14/2025 How Many Children Do You Have? 1 14 Yr Old Daughter [email or web address] Information not available 12/29/2022 What Is Your Relationship Status? Single claudia Information not available 01/05/2024 Are You Sexually Active? Yes [email or web address] Information not available 12/29/2022 At What Age Did You Start Smoking Tobacco? 18 [email or web address] Information not available 02/14/2025 How Much Tobacco Do You Smoke? No [email or web address] Information not available 02/14/2025 Sex: Female Functional Status Question Answer Note LastModified by Organizat ion Details LastModified Time How many times per week do you consume alcohol? Less than 1 time per week [email or web address] Information not available 02/14/2025 Do you use any illicit or recreational drugs? No [email or web address] Information not available 12/29/2022 Do you or have you ever used any other forms of tobacco or nicotine? No [email or web address] Information not available 12/29/2022 What is your level of alcohol consumption? Occasional [email or web address] Information not available 12/29/2022 Are you currently employed? Yes [email or web address] Information not available 02/14/2025 Do you or have you ever used e-cigarettes or vape? Never used electronic cigarettes [email or web address] Information not available 12/29/2022 What is your exercise level? Occasional [email or web address] Information not available 12/29/2022 Mental Status None recorded. Family History Relationship Description Onset Age of this Age Resolved Age Notes LastModified by Organization Details LastModified Time Paternal Grandfather Myocardial infarction [email or web address] Not available 12/04 11:53:28 Paternal Grandfather Hypertensive disorder Not available 12/29 11:53:28 Paternal Grandfather Heart disease [email or web address] Not available 03/27 /2023 11:53:28 Maternal Grandmother Hypercholest erolemia [email or web address] Not available 12/29 11:53:28 Maternal Grandmother Myocardial infarction [email or web address] Not available 12/04 11:53:28 Maternal Grandmother Cerebrovascu lar accident [email or web address] Not available 11:53:28 Maternal Grandmother Hypertensive disorder Not available 12/29 11:53:28 Maternal Grandmother Heart disease [email or web address] Not available 12/29 11:53:28 Mother Ulcerative colitis [email or web address] Not available 12/29 11:53:28 Unspecified Relation Endometriosi s (clinical) [place] [address] Not available 11:53:28 Unspecified Relation Malignant neoplasm of breast [place] [address] Not available 12/29 11:53:28 Unspecified Relation Malignant neoplasm of colon [place] [address] Not available 12/29 11:53:28 Unspecified Relation Ulcerative colitis [place] [address] Not available 12/29 11:53:28 Maternal Grandfather Myocardial infarction [email or web address] Not available 12/04 11:53:28 Maternal Grandfather Hypertensive disorder [place] [address] Not available 12/29 11:53:28 Maternal Grandfather Heart disease [place] [address] Not available 12/29 11:53:28 Paternal Grandmother Myocardial infarction Not available 12/04 11:53:28 Paternal Grandmother Hypertensive disorder [email or web address] Not available 12/29 11:53:28 Medical History Condition Response Other Cancer N High Blood Pressure Y Colon Cancer N Cytomegalovirus N Hyperthyroidism N MRSA N Breast Cancer N Herpes (HSV) N Blood Transfusion N Lung Cancer N Depression N Hypothyroidism N Incontinence N Panic Attacks N Neurological Disorder N Deep Vein Thrombosis N Anxiety Disorder N Autoimmune disease Y Arthritis N Tuberculosis/Positive PPD N Shingles N Polycystic Ovarian Syndrome N Cervical Cancer N Hematuria N Chlamydia N Stroke N Varicosities N Seasonal allergies Y Crohn's Disease N Alzheimer's/Dementia N COPD/Emphysema N Endometriosis N HPV/Genital Warts N IBS (Irritable Bowel Syndrome) N History of Abnormal Pap N High Cholesterol N Liver Disease N Kidney Infection N Fibromyalgia N Ulcer N Kidney Disease Y HIV N Gallbladder disease N Sickle Cell Disease/Trait N Von Willebrand disease N ADD/ADHD N Eating Disorder N Anemia N Diabetes Mellitus (non-insulin dependent ) N Multiple Sclerosis N Ovarian Problems N Gonorrhea N Frequent Urinary Tract infections N Osteopenia N Headaches/migraines N GERD (reflux) N Ovarian Cancer N Diabetes (insulin dependent) N Seizures/Epilepsy N Fibroids N Asthma N Heart Attack N Lupus N Endometrial Cancer N Rubella N Blood Clotting Disorder N Bipolar Disorder N Diabetes Mellitus (during ) N Ulcerative Colitis Y Hepatitis N Heart Disease N Pulmonary Embolism N RPR N Chicken Pox N Osteoporosis N Gynecological History Statement/Question Response Date of last HPV 02/14/2025 Date of LMP 05/09/2023 HPV Vaccine N Duration of Flow (days) 5-7 Most Recent Mammogram 09/05/2024 Current Control Method Menopause Age at Menarche 9 If Post Menopausal, Age at Menopause 47 Date of Last Colonoscopy Most Recent Bone Density Date of Last Pap Smear 02/14/2025 Obstetrics History GPAL:G 2 P 1 0 1 1 Type Value Full Term 1 Spontaneous 1 Living 1 Total 2 Past Encounters Encounter ID Performer Location Encounter Start Date Encounter Closed Date Diagnosis/Indication Diagnosis SNOMED-CT Code Diagnosis ICD10 Code Diagnosis IMO Codes Diagnosis Note [id number] Laura Gastelum MD [facility] [place] [address] [place] [address] 12/29/2022 11:06:24 12/30/2022 00:47:15 Gynecologic examination [id number] Z01.419 Screening for malignant neoplasm of cervix 298644197 Z12.4 Depression screening 171 757565 Z13.31 Secondary oligomenorrhea 90137369 N91.4 advised Nataliya to ck FSH to assess her menopausal status to determine need for contracept price. [id number] Tori Zimmer MD [facility] [address] [place] [address] 02/06/2023 12:33:28 02/06/2023 15:35:27 Postmenopausal bleeding 20068877 N95.0 Patient FSH was in December in menopausal range , no last week had an episode of postmenopa usal bleeding discussed need to rule out EM hyperplasi a, EM CA . Will order US and EMB. Female uri nary stress incontinence [id number] N39.3 Discussed MAGDIEL and offered referral to discussed with Dr Anaya for E&M [id number] Tori Zimmer MD [facility] [address] [place] [phone] 03/06/2023 12:41:04 03/09/2023 09:30:30 Postmenopausal bleeding 96310003 N95.0 EMB reassuring negative need US Follow up and PMB precaution s discussed all Qs answered. 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 -Age of Menopause: [address] Gastelum did FSH.-When did the bleeding start: Started 05/06/2023- Stopped 05/09/2023; Was told menopausal in December. Period in February, Period in March seen Ashely Peters that was negative. -Any new medication s: None -What else is going on with your health? Denies -TVUS today shows uterine linin.71cm, uterus WNL, unable to see ovaries. POCEMB [id number] Zoe Montague MD [address] [place] [address] 05/29/2023 10:33:48 05/29/2023 12:51:54 Postmenopausal bleeding 05755029 N95.0 Needs HSC/D&C. Reviewed risks including but not limited to bleeding, infection, injury. 30 minutes spent reviewing history, counseling and documentat ion of today's patient visit. Body mass index 30+ - obesity 423281013 Z68.42 discussed the importance of weight loss and the underlying cause of her bleeding. [id number] Zoe Montague MD [facility] [address] [place] [address] 07/21/2023 10:22:08 07/21/2023 16:44:52 Postmenopausal bleeding 30323757 N95.0 Patient reassured. Bleeding precaution s discussed. Female uri nary stress incontinence 18708672 N39.3 offered referral if continues to have issues. [id number] Laura Gastelum MD [facility] [address] [place] [address] 01/05/2024 09:54:33 01/05/2024 10:40:45 Gynecologic examination [id number] Z01.419 normal annual exam Screening for malignant neoplasm of cervix 384073161 Z12.4 Depression screening 171 588622 Z13.31 Atrophic vaginitis 72421 000 N95.2 discussed importance of estrogen for vaginal and bladder health.tamir l begin low dose cream [id number] Laura Gastelum MD [facility] [address] [place] [address] 02/14/2025 10:06:39 02/14/2025 10:53:10 Gynecologic examination 21003920 Z01.419 normal annual examDiscus sed healthy lifestyle and [facility] , gets annual colonoscop y due to UC Screening for malignant neoplasm of cervix 214235425 Z12.4 Depression screening 171 035021 Z13.31 Atrophic vaginitis 29623 000 N95.2 67244 Continue/b egin vaginal estrogen for vaginal and bladder health. Health Concerns Section Related Observation LastModified by Organization Detai ls LastModified Time None Recorded Concern Status LastModified by Organization Details LastModified Time None Recorded Advance Directives Directive None Recorded Payers Insurance Date Sequence Insurance Name Policy Number Policy Julio Covered Member ID Julio Member ID Guarantor Name 02/14/2025 1 [facility] [employer] ON OR AFTER 04/04/21 (MEDICAID REPLACEMENT - HMO) Nataliya Carter [id number] Nataliya Carter Notes Date Note Type Note Provider Name and Address Organization Details Recorded Time 05/19/2023 text/html ROS as noted in the HPI Nataliya is here today for F/U of current postmenopausal bleeding and pelvic pain. Had US in office today. MARIIA CHRIS, LAB MANAGER [address] [facility], [place], [address], [facility] [place] 05/19/2023 16:41:38 05/29/2023 text/html Post Menopausal BleedingReported by PatientPatient continues to have irregular postmenopausal bleeding. She states she didn't even know she was menopausal until Dr. Gastelum did the FSH.ROS as noted in the HPI Nataliya is here today for F/U of current postmenopausal bleeding and pelvic pain. US done 05/19/23.ENDO 7.1mmNEITHER OVARY SEEN.UTERUS APPEARS WNL. 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 For onset/timing, patient reportsdate of surgery: (07/08/2023)([facility] For quality, patient reportsprocedure: (hsc / d&c). For context, patient reportsreason for procedure: (pmb).follow up after hysteroscopy/D&C. Atrophic endometrial cavity noted. Complains of leaking with cough, lift. States it is particularly frustrating right now because cough due to allergy season. Nataliya 48 y/o here for post op visit Zoe Montague MD [address] [place] [address], [phone], [facility] [employer] 07/21/2023 11:30:27 01/05/2024 text/html Nataliya is a 48 yr old who presents for well woman exam. She was seen 1 yr ago for this.She had a hysteroscopy D and C last yr due to postmenop bl. Findings were atrophic endometriumShe had an abn left mmg last year and was found to have a cyst.She reports noting urinary frequency this year, haroldo lately. her primary care did a culture and has her on Yasmine Gastelum MD [address] [place] [address], [phone], [place] [employer] [place] 01/05/2024 10:40:13 02/14/2025 text/html Nataliya is a 49 yr old who presents for well woman exam. Pt. last Pap: 01-05-2024. Mammogram: 09-05-2024. Pt. is postmenopausal.She had a hysteroscopy D and C 2 yrs ago due to postmenop bl. Findings were atrophic endometriumShe was started on estradiol vaginal cream last year to help with genitourinary sx of menopause, but admits to not using itShe had an abn left mmg last year and was found to have a cyst, gets annual mammogram in Sep. at [facility]. She has not felt any lumps herselfMain health challenge is UC, she is on Humira and following with GI, this medication has been very helpful for her.She keeps busy with her daughter, Wanda, who is in high school Laura Gastelum MD [address] [facility], [place], [phone], [facility] [employer] 02/14/2025 10:52:44 OBGyn Episode No OBEpisode recorded.
[2025-07-28 07:15] VITALS: BP 125/68; PULSE 82; RESP 18; TEMP 36.8; O2SAT 96
--- NOTE | 2025-07-28 07:26 | WPDANESEPPF ---
Anes - Initial Pre Proc Eval Procedure: Operation Date: 07/28/25 08:30 Proposed Procedures p Diagnostic Colonoscopy - Stewart Palafox MD Date/Time: 07/28/25 07:26 Surgeon: Stewart Palafox MD Pre Op Diagnosis: Ulcerative (chronic) pancolitis without complicati Patient Data Age: 50 Gender: F Height: 1.63 m Weight: 127.8 kg Last Vital Signs Temp 98.3 F 07/28/25 07:15 Pulse 82 07/28/25 07:15 Resp 18 07/28/25 07:15 BP 125/68 07/28/25 07:15 Pulse Ox 96 07/28/25 07:15 O2 Del Method Room Air 07/28/25 07:15 Allergies Allergy/AdvReac Type Severity Reaction Status Date / Time Sulfa (Sulfonamide Allergy Mild Unknown Verified 07/28/25 07:13 Antibiotics) Home Medications ?Medication ?Instructions ?Recorded ?Confirmed ?Type B-complex with vitamin C 1 cap PO HS 03/31/24 07/28/25 History duloxetine 60 mg capsule,delayed 30 mg PO BID 03/31/24 07/28/25 History release folic acid 20 mg capsule 20 mg PO DAILY 03/31/24 07/28/25 History montelukast 10 mg tablet 10 mg PO HS 03/31/24 07/28/25 History multivitamin-ferrous 1 tablet PO DAILY 03/31/24 07/28/25 History fumarate-folic acid 18 mg-400 mcg tablet (Centrum) omeprazole 20 mg capsule,delayed 20 mg PO DAILY 03/31/24 07/28/25 History release albuterol sulfate 90 mcg/actuation 2 puff inhalation Q6H PRN SOB 04/26/24 07/21/25 History aerosol inhaler magnesium 400 mg PO DAILY 04/26/24 07/28/25 History hyoscyamine sulfate 0.375 mg See Rx Instructions .Route 04/19/25 07/28/25 Rx tablet,extended release,12 hr .COMPLEX #60 tabs adalimumab-ryvk 40 mg/0.4 mL 40 mg (0.4 mL) subcut WEEKLY #2 ea 07/06/25 07/28/25 Rx subcutaneous auto-injector kit ([employer] New Mediaguanako() Autoinjector) carvedilol 12.5 mg tablet 12.5 mg PO BID 07/21/25 07/28/25 History loratadine 10 mg tablet 10 mg PO DAILY 07/21/25 07/28/25 History trazodone 50 mg tablet 50 mg PO DAILY 07/21/25 07/28/25 History Patient hx anesthesia problems: none Family hx anesthesia problems: none Results Review: All pre-operative results and documents have been reviewed as part of the pre-operative evaluation. [facility] Social History Social History Years smoked: 10 Smoking status: Former smoker Tobacco type: cigarettes Second hand tobacco smoke exposure: No Alcohol intake: never Substance use: never Substance use type: does not use Do You Feel Safe in your Home?: Yes Living arrangements: with family Occupation/Education: occupation Gender identity (if verbalized by the patient): Female Anes - Eval Final PreProcedure Day of Procedure 07/28/25 07:26 Patient weight: morbidly obese Lungs: normal air movement Airway: Mallampati scale class II Neurological: alert and oriented Last oral intake: >/= 8 hours ASA classification: III Emergent: no Anesthetic plan: proceed Anesthesia type and monitoring: general GIVS and standard monitoring Results Review: All pre-operative results and documents have been reviewed as part of the pre-operative evaluation. Asthma, BMI 48, ex smoker quit approx 2004, hx of UC. Pt can walk 1-2 fos, no cp or sob. Informed Consent: The patient's anesthetic plan and its attendant risks and benefits were discussed with the patient/family/POA. Questions were solicited and answers provided to the satisfaction of the patient/family/POA.
[2025-07-28] MEDS: LACTATED RINGERS 1,000 ML 150 ML IV CONT (07:29)
--- NOTE | 2025-07-28 08:20 | PM.HPGS ---
History of Present Illness History of Present Illness Consent: Risks, benefits, and alternatives have been discussed and questions answered. Patient agrees to proceed with procedure. Chief complaint: Ulcerative (chronic) pancolitis without complicati Narrative: Nataliya Carter is a 50 year old female here for colonoscopy, diagnosed ulcerative colitis in 2012 she was given biosimilar for Remicade without improvement and was changed to Humira which she is currently taking weekly, last colonoscopy 2023 with no more colitis, no dysplasia Review of Systems Review of Systems: All systems reviewed & are unremarkable except as noted in HPI and below PMFSH Social History Social History Years smoked: 10 Smoking status: Former smoker Tobacco type: cigarettes Second hand tobacco smoke exposure: No Alcohol intake: never Substance use: never Substance use type: does not use Do You Feel Safe in your Home?: Yes Living arrangements: with family Occupation/Education: occupation Gender identity (if verbalized by the patient): Female Meds Home Medications and Allergies Home Medications ?Medication ?Instructions ?Recorded ?Confirmed ?Type B-complex with vitamin C 1 cap PO HS 03/31/24 07/28/25 History duloxetine 60 mg capsule,delayed 30 mg PO BID 03/31/24 07/28/25 History release folic acid 20 mg capsule 20 mg PO DAILY 03/31/24 07/28/25 History montelukast 10 mg tablet 10 mg PO HS 03/31/24 07/28/25 History multivitamin-ferrous 1 tablet PO DAILY 03/31/24 07/28/25 History fumarate-folic acid 18 mg-400 mcg tablet (Centrum) omeprazole 20 mg capsule,delayed 20 mg PO DAILY 03/31/24 07/28/25 History release albuterol sulfate 90 mcg/actuation 2 puff inhalation Q6H PRN SOB 04/26/24 07/21/25 History aerosol inhaler magnesium 400 mg PO DAILY 04/26/24 07/28/25 History hyoscyamine sulfate 0.375 mg See Rx Instructions .Route 04/19/25 07/28/25 Rx tablet,extended release,12 hr .COMPLEX #60 tabs adalimumab-ryvk 40 mg/0.4 mL 40 mg (0.4 mL) subcut WEEKLY #2 ea 07/06/25 07/28/25 Rx subcutaneous auto-injector kit ([employer](CF) Autoinjector) carvedilol 12.5 mg tablet 12.5 mg PO BID 07/21/25 07/28/25 History loratadine 10 mg tablet 10 mg PO DAILY 07/21/25 07/28/25 History trazodone 50 mg tablet 50 mg PO DAILY 07/21/25 07/28/25 History Allergies Allergy/AdvReac Type Severity Reaction Status Date / Time Sulfa (Sulfonamide Allergy Mild Unknown Verified 07/28/25 07:13 Antibiotics) Vital Signs Vital Signs - 24 hr 07/28/25 07:15 Temperature 98.3 F Pulse Rate 82 Respiratory Rate 18 Blood Pressure 125/68 Pulse Oximetry 96 Oxygen Delivery Room Air Exam Const: General: comfortable and no acute distress HENMT: Face/Nose/Sinus: Normal nares present Eyes: General: appearance normal, both eyes and all related structures Neck: Neck: no JVD Resp: Auscultation: clear to auscultation bilaterally Cardio: Rate: regular rate Rhythm: regular rhythm GI: Inspection: non-distended GI Palp: Yes Soft to palpation Skin: General skin exam: normal color Extrem: General: normal to inspection Psych: Mental Status: mental status grossly normal Assessment and Plan Assessment and plan (1) Ulcerative colitis: Qualifiers: Ulcerative colitis location: other ulcerative colitis Digestive disease complication type: without complication Qualified Code(s): K51.80 - Other ulcerative colitis without complications Code(s): K51.90 - Ulcerative colitis, unspecified, without complications Status: Acute Assessment and Plan: colonoscopy with bx doing well on humira
--- NOTE | 2025-07-28 08:28 | S_PTH ---
PATIENT: Nataliya Garsia LOC: [facility]#:[id number] AGE/SX: 50/F ROOM: RE07/28/[address]: Stewart Palafox MD : 1975 BED: DIS: 07/28/2025 SPEC #: [id number] RECD: 07/28/25 10:13 STATUS: NIKKO OMALLEY #: [id number] THOM: 07/28/25 08:[address]: Stewart Palafox DEPT: [facility] Surgical RECD BY: Anna Ahuja ENTERED: 07/28/25 10:13 SP TYPE: Surgical OTHR DR: Janie Nicholas, DO Tissues: A - Colon Biopsy B - Colon Biopsy Procedures: Hematoxylin and Eosin Stain Gross and Microscopic Level 4
[2025-07-28 08:36] VITALS: BP 102/61; PULSE 79; RESP 18; O2SAT 96
[2025-07-28 08:46] VITALS: BP 109/63; PULSE 72; RESP 18; O2SAT 100
[2025-07-28 08:56] VITALS: BP 118/70; PULSE 75; RESP 18; O2SAT 100
== END 2025-07-28 09:15 | disposition home or self-care (01) ==
PROVIDERS: PCP Internal Medicine; Referring Provider Internal Medicine Gastroenterology; Visit Provider Internal Medicine Gastroenterology
PROC: 0DJD8ZZ Inspection of Lower Intestinal Tract, Via Natural or Artificial Opening Endoscopic (ICD-10-PCS; CPT 45378; principal; 2025-07-28 08:30)
DX: K51.80 Other ulcerative colitis without complications (principal); K64.8 Other hemorrhoids; E66.01 Morbid (severe) obesity due to excess calories; Z68.42 Body mass index [BMI] 45.0-49.9, adult; Z79.51 Long term (current) use of inhaled steroids; Z79.620 Long term (current) use of immunosuppressive biologic; Z87.891 Personal history of nicotine dependence
CPT/HCPCS: 45380; 88305; J2003; J2704; J7120